=== PATIENT | male | born 1945 | race Caucasian/White ===

== ENCOUNTER 2018-04-13 17:07 | Inpatient (IN) ==
[2018-04-13] MEDS ORDERED: ONDANSETRON INJ 2 MG/ML 2 ML VIAL IV STA (17:26)
--- NOTE | 2018-04-13 17:29 | Emergency Department Note ---
Entered by Aminah Banks acting as a scribe for Maynor Laurent DO History of Present Illness General Chief complaint: Infection, Wound Stated complaint: LEFT LEG AMPUTATION, INFECTION, SWOLLEN Source: patient History of Present Illness Onset (ago): month(s) 2 Location: lower extremity (left) Pain Consistency: + other (episode) Maximum Pain Intensity: 2 Quality: + other (infection) Relieved By: not by medication (Bactrim, OxyContin, Gabapentin) Associated symptoms: no fever/chills (fever) The patient is a 73 year old male who presents to the Emergency Room with complaints of an episode of an infection in his left leg starting 2 months ago. The patient states that on February 07 he had his left leg amputated below his knee due to peripheral edema. He states that he had osteomyelitis. He reports th at wound care has been coming twice a week, but it doesn�t seem to be healing. He states that he is still having pain around the site and it is now getting red. He reports that he has 10 mg of OxyContin to take and Gabapentin, but it offers no relief. He notes that he was on Bactrim for it, but finished it 5 days ago and it is offering no relief. The patient denies fever. Home Medications Home Medications Medication Instructions Recorded Confirmed Type aspirin [Aspirin Low Dose] 81 mg PO QAM 10/25/17 04/13/18 History lisinopril 20 mg PO QAM 10/25/17 04/13/18 History atorvastatin 40 mg PO PM 04/13/18 04/13/18 History cilostazol 50 mg PO BID 04/13/18 04/13/18 History folic acid 1 mg PO DAILY 04/13/18 04/13/18 History gabapentin 600 mg PO UD 04/13/18 04/13/18 History gabapentin 900 mg PO HS 04/13/18 04/13/18 History metoprolol succinate [Toprol XL] 25 mg PO QAM 04/13/18 04/13/18 History oxycodone [OxyContin] 10 mg PO Q12H PRN 04/13/18 04/13/18 History Allergies Allergy/AdvReac Type Severity Reaction Status Date / Time sotalol AdvReac Severe v-fib Unverified 04/13/18 17:42 Past Med/Surg History Medical History History of prolonged Q-T interval on ECG (Chronic) GERD (gastroesophageal reflux disease) (Chronic) History of left below knee am[place] (Chronic) [place] [place] Tobacco use (Chronic) PAD (peripheral artery disease) (Chronic) Alcohol use (Resolved) Coronary artery disease (Chronic) Hypertension (Chronic) Aspiration pneumonia (Resolved) Incarcerated left inguinal hernia Peripheral artery disease Small bowel obstruction Surgical History S/P left inguinal hernia repair (Resolved) History of hand surgery History of neck surgery Family History Other Family history non-contributory Heart disease Social History Preferred Language: Kiswahili Beliefs That Will Affect Care: None marital status: / Current Living Situation: Family Current Living Situation Comment: daughter will be moving out soon Feels Safe at Home: Yes Smoking Status: Current every day smoker Hx Alcohol Use: Yes (Pt previous heavy drinker. Last drink 02/04/18.) Hx Substance Use: No Review of Systems See HPI for pertinent positives & negatives. and A total of 10 systems reviewed and were otherwise negative Physical Exam Vital Signs Vital Signs - 24 hr 04/13/18 17:10 04/13/18 17:26 04/13/18 18:40 Temperature 36.5 C Temperature Source Oral Sepsis Recent Fever Within 48 Hours No Sepsis New/Unexplained Change in Mental Status No Sepsis Action Taken by Nursing No Action Required Pulse Rate 76 Pulse Rate [Finger] 78 78 Pulse Rhythm [Finger] Pulse Strength [Finger] Respiratory Rate 18 20 22 Respiratory Effort / Characteristics Non-Labored Spontaneous Respiratory Depth Normal Respiratory Pattern Regular Blood Pressure 125/66 Blood Pressure [Right Arm] 138/73 141/54 H Blood Pressure Mean 85 Blood Pressure Mean [Right Arm] 94 83 Blood Pressure Position Sitting Blood Pressure Position [Right Arm] Pulse Oximetry 99 100 97 Oxygen Delivery Method Room Air Room Air Room Air 04/13/18 19:14 Temperature Temperature Source Sepsis Recent Fever Within 48 Hours Sepsis New/Unexplained Change in Mental Status Sepsis Action Taken by Nursing Pulse Rate Pulse Rate [Finger] 85 Pulse Rhythm [Finger] Regular Pulse Strength [Finger] Normal Respiratory Rate 18 Respiratory Effort / Characteristics Non-Labored Spontaneous Respiratory Depth Normal Respiratory Pattern Regular Blood Pressure Blood Pressure [Right Arm] 132/65 Blood Pressure Mean Blood Pressure Mean [Right Arm] 87 Blood Pressure Position Blood Pressure Position [Right Arm] Sitting Pulse Oximetry 95 Oxygen Delivery Method Room Air GENERAL: Patient is awake alert in no acute distress patient is resting comfortably and showing no signs of anxiety EYES: The conjunctivae are clear. The pupils are round and reactive. EARS, NOSE, MOUTH AND THROAT: The nose is without any evidence of any deformity. Mucous membranes are moist tongue is midline NECK: The neck is nontender and supple. RESPIRATORY: Normal respiratory effort is noted there is no evidence of wheezing rhonchi or rales CARDIOVASCULAR: Regular rate and rhythm noted there no murmurs rubs or gallops normal S1 normal S2 GASTROINTESTINAL: The abdomen is soft. Bowel sounds are present in all quadrants. Abdomen is nontender MUSCULOSKELETAL/EXTREMITIES: There is no evidence of gross deformity full range of motion is noted in the hips and shoulders SKIN: There is edema to both lower extremities. Left below the knee amputation site is noted. There is erythema noted to the distal stump. There is a nonhealing area over the surgical site. There is granulation tissue noted. No drainage. NEUROLOGIC: Patient is awake alert and oriented x3. Course 1721: Past medical records reviewed. The patient was evaluated in room B3B, and a complete history and physical examination were performed. 1855: I reevaluated the patient and updated him on his test results. I discussed the treatment plan with him. He verbally agrees and understands. 1856: I reviewed the patient's case with ILIANA Winter. She will evaluate the patient for further management. Consultations Consultation #1: I reviewed the patient's case with ILIANA Winter. She will evaluate the patient for further management. Time: 18:56 Administered Medications Vancomycin HCl 1,500 mg/ (Sodium Chloride) 530 mls @ 200 mls/hr IV NOW ONE Stop: 04/13/18 21:29 Last Admin: 04/13/18 19:44 Dose: 200 mls/hr Documented by: [id number] Discontinued Medications Sodium Chloride (Nss) 500 mls @ 999 mls/hr IV .Q31M MARIANNE Stop: 04/13/18 18:00 Last Infusion: 04/13/18 18:09 Dose: 0 mls/hr Documented by: [id number] Admin: 04/13/18 17:43 Dose: 999 mls/hr Documented by: [id number] Ceftriaxone Sodium (Rocephin) 1,000 mg in 50 mls @ 100 mls/hr IV NOW STA Stop: 04/13/18 19:20 Last Infusion: 04/13/18 19:44 Dose: 0 mls/hr Documented by: [id number] Admin: 04/13/18 19:13 Dose: 100 mls/hr Documented by: [id number] Morphine Sulfate (Morphine Sulfate) 4 mg IV Q15M PRN PRN Reason: Pain Stop: 04/27/18 17:25 Last Admin: 04/13/18 18:08 Dose: 4 mg Documented by: [id number] Admin: 04/13/18 17:43 Dose: 4 mg Documented by: [id number] Ondansetron HCl (Zofran) 4 mg IV NOW STA Stop: 04/13/18 17:27 Last Admin: 04/13/18 17:43 Dose: 4 mg Documented by: [id number] Medical Decision Making Differential Diagnosis Etiologies such as cellulitis, abscess, MRSA infection, dermatitis, drug eruption, necrotizing fasciitis, Lyme, tick borne illness as well as others were entertained. Medical Records Attestation: I reviewed the patient's medical records. Home Medications Current Medication List: was personally reviewed by me Laboratory Data Attestation: I reviewed the patient's lab results. Result diagrams: 04/13/18 17:40 04/13/18 17:40 Lab Results 04/13/18 04/13/18 04/13/18 Range/Units 17:40 17:40 17:40 WBC 7.34 (4.8-10.8) K/uL RBC 3.73 L (4.7-6.1) M/uL Hgb 11.6 L (14.0-18.0) g/dL Hct 35.1 L (42-52) % MCV 94.1 (80-100) fL MCH 31.1 (25-34) pg MCHC 33.0 (32-36) g/dL RDW Std Deviation 50.6 H (36.4-46.3) fL RDW Coeff of David 14.9 H (11.5-14.5) % Plt Count 379 (130-400) K/uL MPV 9.0 (7.4-10.4) fL Immature Gran % (Auto) 0.1 % Neut % (Auto) 44.5 % Lymph % (Auto) 41.4 % Charlotte % (Auto) 9.0 % Eos % (Auto) 3.1 % Baso % (Auto) 1.9 % Immature Gran # (Auto) 0.01 (0.00-0.02) K/uL Neut # (Auto) 3.26 (1.4-6.5) K/uL Lymph # (Auto) 3.04 (1.2-3.4) K/uL Charlotte # (Auto) 0.66 H (0.11-0.59) K/uL Eos # (Auto) 0.23 (0-0.5) K/uL Baso # (Auto) 0.14 (0-0.2) K/uL ESR 86 H (0-14) mm/hr PT 10.1 (9.0-12.0) Seconds INR 1.0 (0.9-1.1) APTT 27.1 (21.0-31.0) Seconds PTT Ratio 1.0 Sodium (136-145) mmol/L Potassium (3.5-5.1) mmol/L Chloride (98-107) mmol/L Carbon Dioxide (21-32) mmol/L Anion Gap (3-11) BUN (7-18) mg/dl Creatinine (0.6-1.4) mg/dl Est Cr Clr Drug Dosing ml/min Est GFR ( Amer) Est GFR (Non-Af Amer) BUN/Creatinine Ratio (10-20) Glucose (70-99) mg/dl Calcium (8.5-10.1) mg/dl Magnesium (1.8-2.4) mg/dl Total Bilirubin (0.2-1) mg/dl AST (15-37) U/L ALT (12-78) U/L Alkaline Phosphatase (45-117) U/L C-Reactive Protein (0-0.29) mg/dl Total Protein (6.4-8.2) gm/dl Albumin (3.4-5.0) gm/dl Globulin (2.5-4.0) gm/dl Albumin/Globulin Ratio (0.9-2) Urine Color Urine Appearance (Clear) Urine pH (4.5-7.5) Ur Specific Austin (1.000-1.030) Urine Protein (Negative) Urine Glucose (UA) (Negative) Urine Ketones (Negative) Urine Blood (Negative) Urine Nitrite (Negative) Urine Bilirubin (Negative) Urine Urobilinogen (Negative) Ur Leukocyte Esterase (Negative) 04/13/18 04/13/18 Range/Units 17:40 18:21 WBC (4.8-10.8) K/uL RBC (4.7-6.1) M/uL Hgb (14.0-18.0) g/dL Hct (42-52) % MCV (80-100) fL MCH (25-34) pg MCHC (32-36) g/dL RDW Std Deviation (36.4-46.3) fL RDW Coeff of David (11.5-14.5) % Plt Count (130-400) K/uL MPV (7.4-10.4) fL Immature Gran % (Auto) % Neut % (Auto) % Lymph % (Auto) % Charlotte % (Auto) % Eos % (Auto) % Baso % (Auto) % Immature Gran # (Auto) (0.00-0.02) K/uL Neut # (Auto) (1.4-6.5) K/uL Lymph # (Auto) (1.2-3.4) K/uL Charlotte # (Auto) (0.11-0.59) K/uL Eos # (Auto) (0-0.5) K/uL Baso # (Auto) (0-0.2) K/uL ESR (0-14) mm/hr PT (9.0-12.0) Seconds INR (0.9-1.1) APTT (21.0-31.0) Seconds PTT Ratio Sodium 133 L (136-145) mmol/L Potassium 3.9 (3.5-5.1) mmol/L Chloride 101 (98-107) mmol/L Carbon Dioxide 29 (21-32) mmol/L Anion Gap 3.0 (3-11) BUN 9 (7-18) mg/dl Creatinine 0.78 (0.6-1.4) mg/dl Est Cr Clr Drug Dosing 84.2 ml/min Est GFR ( Amer) 104.5 Est GFR (Non-Af Amer) 90.2 BUN/Creatinine Ratio 10.9 (10-20) Glucose 82 (70-99) mg/dl Calcium 9.2 (8.5-10.1) mg/dl Magnesium 2.1 (1.8-2.4) mg/dl Total Bilirubin 0.5 (0.2-1) mg/dl AST 17 (15-37) U/L ALT 11 L (12-78) U/L Alkaline Phosphatase 85 (45-117) U/L C-Reactive Protein 5.73 H (0-0.29) mg/dl Total Protein 7.5 (6.4-8.2) gm/dl Albumin 3.2 L (3.4-5.0) gm/dl Globulin 4.3 H (2.5-4.0) gm/dl Albumin/Globulin Ratio 0.7 L (0.9-2) Urine Color Yellow Urine Appearance Clear (Clear) Urine pH 7.5 (4.5-7.5) Ur Specific [place] 1.009 (1.000-1.030) Urine Protein Negative (Negative) Urine Glucose (UA) Negative (Negative) Urine Ketones Negative (Negative) Urine Blood Negative (Negative) Urine Nitrite Negative (Negative) Urine Bilirubin Negative (Negative) Urine Urobilinogen Negative (Negative) Ur Leukocyte Esterase Negative (Negative) Imaging Data Radiologist's Impression: Radiology results as stated below per my review and the radiologist's interpretation: CT knee LT wo con CT DOSE: HISTORY: Pain S/P left BKA, swelling and pain TECHNIQUE: Multiaxial CT images of the left knee were performed and reformatted in the sagittal and coronal plane without the use of contrast. A dose lowering technique was utilized adhering to the principles of ALARA. COMPARISON: None. FINDINGS: Findings consistent with a below-knee amputation. There is a healing fracture of the inferior margin of the residual fibula. To reaction is present. There is no lytic or blastic process. There is no CT evidence for osteomyelitis. There is moderate soft tissue edematous change suggesting a generalized subcutaneous cellulitis. There is no evidence for drainable abscess or collection. IMPRESSION: 1. Operative changes consistent with a below-knee amputation. 2. Generalized soft tissue edematous change adjacent to the operative site consistent with generalized cellulitis. 3. No evidence for drainable abscess or collection. 4. No evidence for osteomyelitis. 5. Healing fracture of the inferior margin of the residual fibular fragment. The above report was generated using voice recognition software. It may contain grammatical, syntax or spelling errors. Electronically signed by: Osmar Meadows M.D. 04/13/2018 6:34 PM Blood Pressure Blood Pressure Findings: Normal blood pressure Blood Pressure Disposition: did not require urgent referral MDM Narrative The patient is a 73-year-old male who presented to the emergency department for an evaluation of left leg pain. The patient had an amputation below the knee for peripheral vascular disease as well as infection in his leg. The patient presents today with worsening pain redness and swelling. The patient's history and physical exam appear to be consistent with a cellulitis. CT was obtained but no drainable fluid collection was noted. The patient was treated with pain medication as well as IV antibiotics in the emergency department. He was reevaluated multiple times. I discussed his case with the on-call [facility] hospitalist group. They have agreed to evaluate the patient in the emergency department for further management and disposition. Impression & Plan Postoperative wound cellulitis, Post op infection Discharge Plan Visit Data Chief Complaint: Infection, Wound Stated Complaint: LEFT LEG AMPUTATION, INFECTION, SWOLLEN ED Provider: Maynor Laurent Discharge Problem: Postoperative wound cellulitis, Post op infection Patient Disposition: Being Evaluated by Hospitalist Forms Stand Alone Forms: My [facility] Prescriptions Prescriptions: No Action lisinopril 20 mg Tablet 20 mg PO QAM RF: 0 aspirin [Aspirin Low Dose] 81 mg Tablet,Delayed Release (Dr/Ec) 81 mg PO QAM RF: 0 atorvastatin 40 mg Tablet 40 mg PO PM RF: 0 cilostazol 50 mg Tablet 50 mg PO BID RF: 0 gabapentin 300 mg Capsule 600 mg PO UD RF: 0 gabapentin 300 mg Capsule 900 mg PO HS RF: 0 metoprolol succinate [Toprol XL] 25 mg Tablet Extended Release 24 Hr 25 mg PO QAM RF: 0 oxycodone [OxyContin] 10 mg Tablet,Oral Only,Ext.Rel.12 Hr 10 mg PO Q12H PRN (Reason: Pain) RF: 0 folic acid 1 mg Tablet 1 mg PO DAILY RF: 0 Referrals Referrals: Tio Holcomb M.D. [Primary Care Provider] - Discharge Problem: Post op infection Qualifiers: Encounter type: initial encounter Postoperative infection type: unspecified type Qualified Code(s): T81.40XA - Infection following a procedure, unspecified, initial encounter The scribe's documentation has been prepared under my direction and personally reviewed by me in its entirety. I confirm that the note above accurately reflects all work, treatment, procedures, and medical decision making performed by me.
[2018-04-13] MEDS ORDERED: SODIUM CHLORIDE 0.9% 500 ML IV SCH (17:30)
[2018-04-13] MEDS: MoRPHine SULFATE 4 MG/ML 1 ML CARP\\VIAL IV PRN ×3 (17:43→21:39)
[2018-04-13 17:58] LABS: Basophils # (auto) 0.14 K/uL (0-0.2); Basophils % (auto) 1.9 %; Eosinophils # (auto) 0.23 K/uL (0-0.5); Eosinophils % (auto) 3.1 %; Hematocrit (blood only) 35.1 % (42-52); Hemoglobin 11.6 g/dL (14.0-18.0); Immature Granulocytes # (auto) 0.01 K/uL (0.00-0.02); Immature Granulocytes % (auto) 0.1 %; Lymphocytes # (auto) 3.04 K/uL (1.2-3.4); Lymphocytes % (auto) 41.4 %; Mean Corpuscular Volume 94.1 fL (80-100); Monocytes # (auto) 0.66 K/uL (0.11-0.59); Neutrophils # (auto) 3.26 K/uL (1.4-6.5); Neutrophils % (auto) 44.5 %; Platelet Count 379 K/uL (130-400); RDW Coefficient of Variation 14.9 % (11.5-14.5); RDW Standard Deviation 50.6 fL (36.4-46.3); Red Blood Count 3.73 M/uL (4.7-6.1); White Blood Count 7.34 K/uL (4.8-10.8)
[2018-04-13 18:08] LABS: Partial Thromboplastin Time 27.1 Seconds (21.0-31.0); Prothrombin Time 10.1 Seconds (9.0-12.0)
[2018-04-13 18:21] LABS: Albumin Level 3.2 gm/dl (3.4-5.0); BUN Creatinine Ratio 10.9 (10-20); Calcium 9.2 mg/dl (8.5-10.1); Creatinine Clr Calc Pharmacy 84.2 ml/min; Est GFR (African American) 104.5; Est GFR (Non-African American) 90.2; Magnesium 2.1 mg/dl (1.8-2.4); Potassium 3.9 mmol/L (3.5-5.1)
[2018-04-13 18:23] LABS: Albumin Globulin Ratio 0.7 (0.9-2); Bilirubin,Total 0.5 mg/dl (0.2-1); C Reactive Protein 5.73 mg/dl (0-0.29); Globulin 4.3 gm/dl (2.5-4.0); Total Protein 7.5 gm/dl (6.4-8.2)
[2018-04-13 18:24] LABS: Appearance Urine Clear (Clear); Bilirubin Urine Negative (Negative); Blood Urine Negative (Negative); Color Urine Yellow; Glucose Urine UA Negative (Negative); Ketones Urine Negative (Negative); Leukocyte Esterase Urine Negative (Negative); Nitrite Urine Negative (Negative); Protein Urine Negative (Negative); Specific Gravity Urine 1.009 (1.000-1.030); Urobilinogen Urine Negative (Negative); pH Urine 7.5 (4.5-7.5)
--- NOTE | 2018-04-13 18:35 | CT Scan Report ---
CT knee LT wo con CT DOSE: HISTORY: Pain S/P left BKA, swelling and pain TECHNIQUE: Multiaxial CT images of the left knee were performed and reformatted in the sagittal and c oronal plane without the use of contrast. A dose lowering technique was utilized adhering to the antonella nciples of KASEY. COMPARISON: None. FINDINGS: Findings consistent with a below-knee amputation. There is a healing fracture of the inferi or margin of the residual fibula. To reaction is present. There is no lytic or blastic process. There is no CT evidence for osteomyelitis. There is moderate soft tissue edematous change suggesting a generalized subcutaneous cellulitis. Ther e is no evidence for drainable abscess or collection. IMPRESSION: 1. Operative changes consistent with a below-knee amputation. 2. Generalized soft tissue edematous change adjacent to the operative site consistent with generalize d cellulitis. 3. No evidence for drainable abscess or collection. 4. No evidence for osteomyelitis. 5. Healing fracture of the inferior margin of the residual fibular fragment. The above report was generated using voice recognition software. It may contain grammatical, syntax or spelling errors. Electronically signed by: Osmar Meadows M.D. 04/13/2018 6:34 PM
[2018-04-13] MEDS ORDERED: VANCOMYCIN CONSULT ACTIVE PRN (18:51)
[2018-04-13] MEDS ORDERED: VANCOMYCIN HCL 1,500 MG in SODIUM CHLORIDE 0.9% 500 ML IV ONE (18:51)
[2018-04-13] MEDS ORDERED: cefTRIAXone SODIUM 1,000 MG/50 ML BAG IV STA (18:51)
[2018-04-13] MEDS ORDERED: OXYCODONE/ACETAMINOPHEN 10-325 TAB PO PRN (19:45)
[2018-04-13] MEDS ORDERED: ACETAMINOPHEN 325 MG TAB PO PRN ×2 (19:45→23:46)
--- NOTE | 2018-04-13 19:49 | History & Physical Report ---
Date of Service April 13, 2018 Assessment & Plan (1) Cellulitis of leg, left: Pt presented with c/o increased edema, erythema to left leg at prior incision site of L BKA. Had L BKA on 02/07/[address] Liu. He has had follows ups with vascular surgery since, and has home wound care coming to house twice weekly. Bactrim x 10 days by PCP on 03/29/18 without relief. Denies fever/chills, N/V In ER pt afebrile, vitals stable. No leukocytosis CT Knee: 1. Operative changes consistent with a below-knee amputation. 2. Generalized soft tissue edematous change adjacent to the operative site consistent with generalized cellulitis. 3. No evidence for drainable abscess or collection. 4. No evidence for osteomyelitis. 5. Healing fracture of the inferior margin of the residual fibular fragment. -In ER was given Rocephin, Vancomycin, Morphine, Zofran, 500ml NSS -Plan: see Dr Erickson's addendum for plan (2) PAD (peripheral artery disease): Hx PAD L BKA secondary to ischemia On pletal, aspirin, atorvastatin (3) Hypertension: -On lisinopril, metoprolol at home (4) Coronary artery disease: Denies CP/SOB -On ASA, atorvastatin, metoprolol at home (5) History of prolonged Q-T interval on ECG: (6) Tobacco use: Pt reports prior attempts to quit, but "justs like to smoke" -smoking cessation encouraged (7) Alcohol use: Previous ETOH use. Last drink 02/04/[address] Holcomb for routine care Pt was seen with Dr Erickson. See addendum for further plan and assessment. History of Present Illness Chief Complaint: Leg edema and swelling Primary Care Provider: Tio Holcomb Pt is 73 y/o M with PMH HTN, GERD, CAD, PAD s/p L BKA in 01/2018, tobacco use, prior alcohol use, h/o prolonged QTc presented to ER with c/o increased edema, erythema to left leg at prior incision site of L BKA. Pt with hx ER visit at [facility] on 02/05/18 for L foot infection and found to have occluded L distal superficial femoral artery, L popliteal artery, L proximal posterior artery, L peroneal arther and L anterior tibial artery and was transferred to [facility] [place]. Pt had L BKA on 02/07/[address] Liu. He has had follows ups with vascular surgery since, was to have follow up today, however pt rescheduled. Pt states has been having issues with wound healing since surgery and has wound care coming to house twice weekly. Pt reports noticed increased edema and erythema over the past month. Pt was started on Bactrim x 10 days by PCP on 03/29/18 and states finished course without any improvement and feels symptoms are worse with increased edema, erythema. Pt states has noticed some pus like drainage from area. He denies any red streaking. Reports initially after surgery had fantom pain, however that has resolved. He reports still feels like foot is present and has fallen a couple times at night getting out of bed as he forgot his foot was gone. Denies fever/chills, diaphoresis, N/V/D/C, VEGA, dizziness, syncope, vision changes, neck pain, CP, SOB, orthopnea, palpitations, cough, sore throat, choking, otalgia, rhinorrhea, abdominal pain, other rashes, urinary symptoms. Allergies Allergy/AdvReac Type Severity Reaction Status Date / Time sotalol AdvReac Severe v-fib Unverified 04/13/18 17:42 Home Medications Home Medications Medication Instructions Recorded Confirmed Type aspirin [Aspirin Low Dose] 81 mg PO QAM 10/25/17 04/13/18 History lisinopril 20 mg PO QAM 10/25/17 04/13/18 History atorvastatin 40 mg PO PM 04/13/18 04/13/18 History cilostazol 50 mg PO BID 04/13/18 04/13/18 History folic acid 1 mg PO DAILY 04/13/18 04/13/18 History gabapentin 600 mg PO UD 04/13/18 04/13/18 History gabapentin 900 mg PO HS 04/13/18 04/13/18 History metoprolol succinate [Toprol XL] 25 mg PO QAM 04/13/18 04/13/18 History oxycodone [OxyContin] 10 mg PO Q12H PRN 04/13/18 04/13/18 History Past Med/Surg History Medical History History of prolonged Q-T interval on ECG (Chronic) GERD (gastroesophageal reflux disease) (Chronic) History of left below knee amputation (Chronic) 02/07/18 -[facility] [place] Dr Liu Tobacco use (Chronic) PAD (peripheral artery disease) (Chronic) Alcohol use (Resolved) Coronary artery disease (Chronic) Hypertension (Chronic) Aspiration pneumonia (Resolved) Incarcerated left inguinal hernia Peripheral artery disease Small bowel obstruction Surgical History S/P left inguinal hernia repair (Resolved) History of hand surgery History of neck surgery Family History Other Family history non-contributory Heart disease Social History Preferred Language: Danish Communication Ability: Effective Concrete Saw Operator Required: No Beliefs That Will Affect Care: None marital status: / Current Living Situation: Family Current Living Situation Comment: daughter will be moving out soon Feels Safe at Home: Yes Smoking Status: Current every day smoker Hx Alcohol Use: Yes Hx Substance Use: No Review of Systems All systems reviewed & are unremarkable except as noted in HPI & below Physical Exam Vital Signs (Past 24 Hours): Last Vital Signs Temp 36.5 C 04/13/18 17:10 Pulse 85 04/13/18 19:14 Resp 18 04/13/18 19:14 BP 132/65 04/13/18 19:14 Pulse Ox 95 04/13/18 19:14 Physical Exam: General: no distress, WDWN Head: normocephalic, atraumatic Eyes:conjunctiva non-injected, anicteric ENT: normal inspection external ears, nose, mucous membranes moist Neck: supple, trachea midline Lungs: clear, no respiratory distress CV: RRR, no murmur Abd: normal BS, soft, non-tender Ext:LLE: +BKA with prior incision with scabbing, lateral aspect with gaping, incision site with some surrounding erythema and tenderness to palpation. No discharge from wound noted at this time. Diffuse L knee edema, upper leg non- tender to palpation. RLE: no cyanosis/erythema, no calf tenderness Neuro: A&O x 3, no focal deficits noted, normal affect Skin: warm, dry Results & Data Laboratory Results Short CBC 04/13/18 Range/Units 17:40 WBC 7.34 (4.8-10.8) K/uL Hgb 11.6 L (14.0-18.0) g/dL Hct 35.1 L (42-52) % Plt Count 379 (130-400) K/uL BMP 04/13/18 17:40 Sodium 133 L Potassium 3.9 Chloride 101 Carbon Dioxide 29 BUN 9 Creatinine 0.78 Glucose 82 Calcium 9.2 Liver Function 04/13/18 Range/Units 17:40 Total Bilirubin 0.5 (0.2-1) mg/dl AST 17 (15-37) U/L ALT 11 L (12-78) U/L Alkaline Phosphatase 85 (45-117) U/L Albumin 3.2 L (3.4-5.0) gm/dl Urine 04/13/18 Range/Units 18:21 Urine Color Yellow Urine Appearance Clear (Clear) Urine pH 7.5 (4.5-7.5) Ur Specific [place] 1.009 (1.000-1.030) Urine Protein Negative (Negative) Urine Glucose (UA) Negative (Negative) Diagnostic Findings CT KNEE: IMPRESSION: 1. Operative changes consistent with a below-knee amputation. 2. Generalized soft tissue edematous change adjacent to the operative site consistent with generalized cellulitis. 3. No evidence for drainable abscess or collection. 4. No evidence for osteomyelitis. 5. Healing fracture of the inferior margin of the residual fibular fragment. Supervising Physician Co-Signing Physician Notes IM ATTENDING : Patient seen and examined. History obtained from patient and records. Preceding documentation by Ms. Annie Gonsalves PA-C reviewed. FINAL ASSESSMENT AND PLAN as follows : Cellulitis secondary to infected postop wound, LLE hx L BKA for left lower limb ischemia (01/2018, [facility] [place]), hx PAD Failed outpatient treatment. No sepsis ro LE DVT Rule out osteomyelitis Hypertension, stable CAD status post stenting Postop anemia, hemoglobin at baseline Past alcohol abuse as per records (Patient somewhat tremulous; claims last drink was 3 months ago) Ongoing tobacco abuse F Cultures, Doxycycline Local measures for LLE cellulitis Wound care provider consult in a.m. LE venous Dopplers rule out DVT MRI left BKA amputation stump rule out osteomyelitis Further management pending workup results. DT precautions as needed Nicotine patch as needed DVT prophylaxis with Lovenox subcu Full code
[2018-04-13] MEDS ORDERED: THIAMINE HCL 100 MG in SYRINGE 9 ML IV STA (20:58)
--- NOTE | 2018-04-13 22:38 | Ultrasound Report ---
US venous doppler LE BI HISTORY: Pain. Edema. donya leg swelling COMPARISON STUDY: None. FINDINGS: Prior left below knee amputation. Thrombus is identified within the left popliteal vein. Al l remaining components of the study are unremarkable. IMPRESSION: Focal acute deep venous thrombosis left popliteal vein. Otherwise normal exam The above report was generated using voice recognition software. It may contain grammatical, syntax or spelling errors. Electronically signed by: Osmar Meadows M.D. 04/13/2018 10:35 PM
[2018-04-13] MEDS ORDERED: NSS + 20MEQ KCL 20 MEQ/1,000 ML BAG IV ONE (23:46)
[2018-04-13] MEDS ORDERED: KETOROLAC TROMETHAMINE 15 MG/ML VIAL IV ONE (23:46)
[2018-04-14] MEDS ORDERED: Heparin IV Standard *NO* Bolus IV SCH (00:05)
[2018-04-14] MEDS: ATORVASTATIN 40 MG TAB PO SCH ×2 (00:41→20:39)
[2018-04-14] MEDS: GABAPENTIN 300 MG CAP PO SCH ×2 (00:41→20:39)
[2018-04-14] MEDS: CILOSTAZOL 100 MG TAB PO SCH ×3 (00:44→20:40)
[2018-04-14] MEDS: HEPARIN STANDARD DEXTROSE 25,000 UNITS/500 ML IV SCH ×2 (02:22→22:03)
[2018-04-14] MEDS: OXYCODONE/ACETAMINOPHEN 5mg/325mg TAB PO PRN ×4 (03:27→22:34)
[2018-04-14] MEDS ORDERED: CONSULT PHARMACY STA (07:40)
[2018-04-14] MEDS: FOLIC ACID 1 MG TAB PO SCH (08:04)
[2018-04-14] MEDS: METOPROLOL SUCC 25MG EXT REL TAB PO SCH (08:07)
[2018-04-14] MEDS: DOXYCYCLINE HYCLATE 100 MG CAP PO SCH ×2 (08:07→20:40)
[2018-04-14] MEDS: LISINOPRIL 20 MG TAB PO SCH (08:08)
[2018-04-14] MEDS: ASPIRIN 81 MG ECTAB PO SCH (08:08)
[2018-04-14] MEDS ORDERED: AMPICILLIN/SULBACTAM CONSULT ACTIVE PRN (08:20)
[2018-04-14 08:29] LABS: Basophils # (auto) 0.09 K/uL (0-0.2); Basophils % (auto) 1.4 %; Eosinophils # (auto) 0.33 K/uL (0-0.5); Eosinophils % (auto) 5.1 %; Hematocrit (blood only) 31.9 % (42-52); Hemoglobin 10.3 g/dL (14.0-18.0); Immature Granulocytes # (auto) 0.01 K/uL (0.00-0.02); Immature Granulocytes % (auto) 0.2 %; Lymphocytes # (auto) 2.18 K/uL (1.2-3.4); Lymphocytes % (auto) 33.9 %; Mean Corpuscular Hgb Conc 32.3 g/dL (32-36); Mean Corpuscular Volume 94.9 fL (80-100); Monocytes # (auto) 0.62 K/uL (0.11-0.59); Monocytes % (auto) 9.6 %; Neutrophils # (auto) 3.21 K/uL (1.4-6.5); Neutrophils % (auto) 49.8 %; Platelet Count 317 K/uL (130-400); RDW Coefficient of Variation 14.9 % (11.5-14.5); RDW Standard Deviation 51.9 fL (36.4-46.3); Red Blood Count 3.36 M/uL (4.7-6.1); White Blood Count 6.44 K/uL (4.8-10.8)
[2018-04-14 08:49] LABS: Partial Thromboplastin Ratio 1.9; Partial Thromboplastin Time 50.7 Seconds (21.0-31.0)
[2018-04-14 08:56] LABS: Calcium 8.5 mg/dl (8.5-10.1); Est GFR (African American) 102.4; Est GFR (Non-African American) 88.3; Potassium 4.2 mmol/L (3.5-5.1)
[2018-04-14 09:12] LABS: BUN Creatinine Ratio 14.3 (10-20)
[2018-04-14] MEDS: AMPICILLIN/SULBACTAM SOD 3,000 MG in 0.9 % SODIUM CHLORIDE 100 ML IV SCH ×3 (09:29→20:38)
[2018-04-14] MEDS: MoRPHine SULFATE 4 MG/ML 1 ML CARP\\VIAL IV PRN (13:38)
[2018-04-14] MEDS: LORazepam 0.5 MG/1 ML VIAL IV PRN (13:39)
--- NOTE | 2018-04-14 15:57 | Hospitalist Progress Note ---
Date of Service April 14, 2018 Assessment & Plan (1) Cellulitis of leg, left: Patient is a 73 yr male who presents with increased edema, erythema to left leg at prior incision site of L BKA. Left Leg Cellulitis: R/O Osteomyelitis H/O left BKA on 02/07/[address] Liu. Failed outpatient Bactrim x 10 days by PCP --CT Knee:Operative changes consistent with a below-knee amputation. Generalized soft tissue edematous change adjacent to the operative site consistent with generalized cellulitis. No evidence for drainable abscess or collection. No evidence for osteomyelitis. Healing fracture of the inferior margin of the residual fibular fragment. --Received IV fluids --Continue IV Abx --Cultures:pending --Continue Wound care --May need debridement --MRI pending (2) PAD (peripheral artery disease): Hx PAD L BKA secondary to ischemia Continue Pletal, aspirin, atorvastatin (3) Hypertension: Stable Continue lisinopril, metoprolol (4) Coronary artery disease: Denies angina symptoms Continue ASA, atorvastatin, metoprolol (5) History of prolonged Q-T interval on ECG: (6) Tobacco use: Patient not interested to quit smoking Counselled to quit smoking (7) Alcohol use: Previous ETOH use. 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 Acute DVT: Continue IV heparin Will plan to start on coumadin as able DVT Px: on IV Heparin Disposition: Case management for discharge planning Subjective Patient is seen and examined at bedside Left leg swelling is better Complains of leg pain Denies chest pain, SOB, dizziness No other complaints Physical Exam Vital Signs (Past 24 Hours): Last Vital Signs Temp 36.7 C 04/14/18 15:31 Pulse 71 04/14/18 15:31 Resp 18 04/14/18 15:31 BP 119/69 04/14/18 15:31 Pulse Ox 96 04/14/18 15:31 Physical Exam: Physical Exam: Vitals signs as noted above General Appearance:Moderately built and nourished, no apparent distress Head: normocephalic, Atraumatic Eyes: normal inspection, EOMI Neck: supple, Trachea midline Respiratory/Chest: Decreased breath sounds, CTA Cardiovascular: S1, S2, No murmur Abdomen/GI:Soft, Non tender, Bowel sounds present Extremities/Musculoskelatal:normal inspection, + Left BKA stump wound in dressing, +edema, tender Neurologic/Psych:AAOX3, grossly no focal neurological deficits Skin: normal color, warm Results & Data Laboratory Results Short CBC 04/13/18 04/14/18 Range/Units 17:40 08:15 WBC 7.34 6.44 (4.8-10.8) K/uL Hgb 11.6 L 10.3 L (14.0-18.0) g/dL Hct 35.1 L 31.9 L (42-52) % Plt Count 379 317 (130-400) K/uL BMP 04/13/18 04/14/18 17:40 08:15 Sodium 133 L 138 Potassium 3.9 4.2 Chloride 101 106 Carbon Dioxide 29 29 BUN 9 12 Creatinine 0.78 0.82 Glucose 82 81 Calcium 9.2 8.5 Liver Function 04/13/18 Range/Units 17:40 Total Bilirubin 0.5 (0.2-1) mg/dl AST 17 (15-37) U/L ALT 11 L (12-78) U/L Alkaline Phosphatase 85 (45-117) U/L Albumin 3.2 L (3.4-5.0) gm/dl Urine 04/13/18 Range/Units 18:21 Urine Color Yellow Urine Appearance Clear (Clear) Urine pH 7.5 (4.5-7.5) Ur Specific [place] 1.009 (1.000-1.030) Urine Protein Negative (Negative) Urine Glucose (UA) Negative (Negative)
--- NOTE | 2018-04-14 23:09 | Magnetic Resonance Report ---
MR lower leg LT wo con HISTORY: 73 years-old Male LLE amp stump swelling ro osteomyelitis chronic pain and swelling about t he right lower leg with possible acute osteomyelitis COMPARISON: CT of the left lower extremity 04/13/2018 TECHNIQUE: Multiplanar multisequence MRI of the left lower leg was obtained without the use of IV con trast. FINDINGS: The study is markedly motion degraded rendering the study nearly nondiagnostic. Postoperative changes from prior below the knee amputation. There is a cutaneous defect measuring approximately 2.2 cm not ed along the anterior surface of the distal amputation stump. Diffuse subcutaneous and intramuscular edema is noted without drainable fluid collection. No definite bony erosive changes to suggest acute osteomyelitis. No drainable fluid collections identified. Study is not tailored to assess the extrins ic structures of the knee. 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 No large j oint effusion identified. IMPRESSION: 1. Markedly motion degraded exam. The study is considered nearly nondiagnostic. 2. Postoperative changes compatible with prior below the knee amputation. Cutaneous defect along the anterior distal soft tissues is noted along with diffuse subcutaneous and deep tissue edema suggestiv e of cellulitis, venous stasis or lymphedema. 3. No drainable fluid collection. 4. No definite evidence of acute osteomyelitis. Consider repeat exam if of further clinical concern. The above report was generated using voice recognition software. It may contain grammatical, syntax o r spelling errors. Electronically signed by: Amilcar Wright M.D. 04/14/2018 11:07 PM
[2018-04-15] MEDS: AMPICILLIN/SULBACTAM SOD 3,000 MG in 0.9 % SODIUM CHLORIDE 100 ML IV SCH ×4 (02:50→20:34)
[2018-04-15] MEDS: OXYCODONE/ACETAMINOPHEN 5mg/325mg TAB PO PRN ×2 (03:58→11:15)
[2018-04-15] MEDS: MoRPHine SULFATE 4 MG/ML 1 ML CARP\\VIAL IV PRN ×3 (06:07→20:37)
[2018-04-15 06:13] LABS: Hematocrit (blood only) 31.8 % (42-52); Hemoglobin 10.7 g/dL (14.0-18.0); Mean Corpuscular Hgb Conc 33.6 g/dL (32-36); Mean Corpuscular Volume 94.9 fL (80-100); Mean Platelet Volume 8.9 fL (7.4-10.4); Platelet Count 319 K/uL (130-400); RDW Standard Deviation 51.5 fL (36.4-46.3); Red Blood Count 3.35 M/uL (4.7-6.1); White Blood Count 7.29 K/uL (4.8-10.8)
[2018-04-15 06:46] LABS: Partial Thromboplastin Ratio 2.3
[2018-04-15 06:53] LABS: BUN Creatinine Ratio 5.1 (10-20); Calcium 8.6 mg/dl (8.5-10.1); Creatinine Clr Calc Pharmacy 75.4 ml/min; Est GFR (African American) 99.9; Est GFR (Non-African American) 86.2; Potassium 3.8 mmol/L (3.5-5.1)
[2018-04-15] MEDS: METOPROLOL SUCC 25MG EXT REL TAB PO SCH (08:17)
[2018-04-15] MEDS: FOLIC ACID 1 MG TAB PO SCH (08:18)
[2018-04-15] MEDS: ASPIRIN 81 MG ECTAB PO SCH (08:18)
[2018-04-15] MEDS: CILOSTAZOL 100 MG TAB PO SCH ×2 (08:18→20:33)
[2018-04-15] MEDS: DOXYCYCLINE HYCLATE 100 MG CAP PO SCH ×2 (08:18→20:33)
[2018-04-15] MEDS: LISINOPRIL 20 MG TAB PO SCH (08:18)
[2018-04-15] MEDS ORDERED: MoRPHine SULFATE 4 MG/ML 1 ML CARP\\VIAL IV STA (15:03)
--- NOTE | 2018-04-15 15:17 | Wound Consultation ---
Date of Consultation April 15, 2018 Assessment & Plan (1) Postoperative wound cellulitis: Wound needed debridement. After obtaining permission topical Xylocaine was applied. Using a #5 curette, fibrin, slough and necrotic tissue were debrided. Minimal bleeding was controlled with pressure and silver nitrate. Patient tolerated procedure well with no complications. This represents an excisional debridement of 67.65 cm�. Wound will be dressed with choice cleanse wound VAC. Will be irrigated with saline. Agree with empiric antibiotics. Will reevaluate when the final culture is available. Patient is stable to start Coumadin for DVT from a wound standpoint. Patient will need to follow with his surgeon on [facility] at some point. I have no problem following the patient and the wound clinic. Thank you for the consult please not hesitate to call with any further questions. Present on Admission?: Yes (2) Cellulitis of leg, left: History of Present Illness Attending Physician: Ross Chong MD This is a 73-year-old male who is admitted with cellulitis status post BKA on 02/07/[address] Liu. MRI is negative for osteomyelitis but is considered nondiagnostic secondary to movement. Patient also has a new DVT in his left popliteal vein. I have been consulted in light of the surgical wound. Allergies Allergy/AdvReac Type Severity Reaction Status Date / Time sotalol AdvReac Severe v-fib Unverified 04/13/18 17:42 Home Medications Home Medications Medication Instructions Recorded Confirmed Type aspirin [Aspirin Low Dose] 81 mg PO QAM 10/25/17 04/13/18 History lisinopril 20 mg PO QAM 10/25/17 04/13/18 History atorvastatin 40 mg PO PM 04/13/18 04/13/18 History cilostazol 50 mg PO BID 04/13/18 04/13/18 History folic acid 1 mg PO DAILY 04/13/18 04/13/18 History gabapentin 600 mg PO UD 04/13/18 04/13/18 History gabapentin 900 mg PO HS 04/13/18 04/13/18 History metoprolol succinate [Toprol XL] 25 mg PO QAM 04/13/18 04/13/18 History oxycodone [OxyContin] 10 mg PO Q12H PRN 04/13/18 04/13/18 History Patient History Medical History History of prolonged Q-T interval on ECG (Chronic) GERD (gastroesophageal reflux disease) (Chronic) History of left below knee amputation (Chronic) 02/07/18 -[facility] [place] - Dr Liu Tobacco use (Chronic) PAD (peripheral artery disease) (Chronic) Alcohol use (Resolved) Coronary artery disease (Chronic) Hypertension (Chronic) Aspiration pneumonia (Resolved) Incarcerated left inguinal hernia Peripheral artery disease Small bowel obstruction Surgical History S/P left inguinal hernia repair (Resolved) History of hand surgery History of neck surgery Family History Other Family history non-contributory Heart disease Social History Communication Ability: Effective Beliefs That Will Affect Care: None marital status: / Current Living Situation: Family Current Living Situation Comment: daughter will be moving out soon Feels Safe at Home: Yes Smoking Status: Current every day smoker Hx Alcohol Use: Yes Hx Substance Use: No Physical Exam Vital Signs (Past 24 Hours): Last Vital Signs Temp 36.9 C 04/15/18 07:24 Pulse 77 04/15/18 07:24 Resp 16 04/15/18 07:24 BP 133/70 04/15/18 07:24 Pulse Ox 92 04/15/18 07:24 Constitutional: WD/WN, vitals as above Respiratory: normal respiratory effort, lungs clear to auscultation Cardiovascular: RRR, no murmur, no edema Skin: Wound measuring is recorded in nursing documentation. Wound bed is covered in fibrin, slough and necrotic tissue. Periwound is intact lower erythematous. Neurologic: awake; not confused Psychiatric: A+Ox3, euthymic affect
[2018-04-15] MEDS ORDERED: WARFARIN SOD 7.5 MG TAB PO ONE (16:00)
[2018-04-15] MEDS: HEPARIN STANDARD DEXTROSE 25,000 UNITS/500 ML IV SCH (17:26)
--- NOTE | 2018-04-15 18:51 | Hospitalist Progress Note ---
Date of Service April 15, 2018 Assessment & Plan (1) Cellulitis of leg, left: Patient is a 73 yr male who presents with increased edema, erythema to left leg at prior incision site of L BKA. Left Leg Cellulitis: Secondary to infected postoperative wound, a complication of care R/O Osteomyelitis H/O left BKA on 02/07/[address] Liu. Failed outpatient Bactrim x 10 days by PCP --CT Knee:Operative changes consistent with a below-knee amputation. Generalized soft tissue edematous change adjacent to the operative site consistent with generalized cellulitis. No evidence for drainable abscess or collection. No evidence for osteomyelitis. Healing fracture of the inferior margin of the r esidual fibular fragment. --MRI:Postoperative changes compatible with prior below the knee amputation. Cutaneous defect along the anterior distal soft tissues is noted along with diffuse subcutaneous and deep tissue edema suggestive of cellulitis, venous stasis or lymphedema. No drainable fluid collection. No definite evidence of acute osteomyelitis. Consider repeat exam if of further clinical concern. S/P debridement on 04/15/18 --Received IV fluids --Continue IV Abx --Wound Culture:Corynebacterium --Blood Culture: No growth to date --Continue wound Vac & Care --Appreciate Wound Care physician help --Needs FU with his Surgeon in [facility] upon discharge (2) PAD (peripheral artery disease): Hx PAD L BKA secondary to ischemia Continue Pletal, aspirin, atorvastatin (3) Hypertension: Stable Continue lisinopril, metoprolol (4) Coronary artery disease: Denies angina symptoms Continue ASA, atorvastatin, metoprolol (5) History of prolonged Q-T interval on ECG: (6) Tobacco use: Patient not interested to quit smoking Counselled to quit smoking (7) Alcohol use: Previous ETOH use. 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
[2018-04-15] MEDS: GABAPENTIN 300 MG CAP PO SCH (20:34)
[2018-04-15] MEDS: ATORVASTATIN 40 MG TAB PO SCH (20:34)
[2018-04-16] MEDS: LORazepam 0.5 MG/1 ML VIAL IV PRN (02:23)
[2018-04-16] MEDS: AMPICILLIN/SULBACTAM SOD 3,000 MG in 0.9 % SODIUM CHLORIDE 100 ML IV SCH ×4 (02:24→19:57)
[2018-04-16] MEDS ORDERED: BACLOFEN 10 MG TAB PO PRN (04:22)
[2018-04-16 06:17] LABS: Basophils # (auto) 0.09 K/uL (0-0.2); Basophils % (auto) 1.2 %; Eosinophils # (auto) 0.47 K/uL (0-0.5); Eosinophils % (auto) 6.1 %; Hematocrit (blood only) 29.8 % (42-52); Hemoglobin 9.8 g/dL (14.0-18.0); Immature Granulocytes # (auto) 0.01 K/uL (0.00-0.02); Immature Granulocytes % (auto) 0.1 %; Lymphocytes # (auto) 2.48 K/uL (1.2-3.4); Lymphocytes % (auto) 32.1 %; Mean Corpuscular Hgb Conc 32.9 g/dL (32-36); Mean Corpuscular Volume 93.4 fL (80-100); Monocytes # (auto) 0.79 K/uL (0.11-0.59); Monocytes % (auto) 10.2 %; Neutrophils # (auto) 3.88 K/uL (1.4-6.5); Neutrophils % (auto) 50.3 %; Platelet Count 314 K/uL (130-400); RDW Coefficient of Variation 14.8 % (11.5-14.5); RDW Standard Deviation 49.8 fL (36.4-46.3); Red Blood Count 3.19 M/uL (4.7-6.1); White Blood Count 7.72 K/uL (4.8-10.8)
[2018-04-16 07:02] LABS: INR 1.1 (0.9-1.1); Partial Thromboplastin Ratio 1.8; Partial Thromboplastin Time 48.6 Seconds (21.0-31.0); Prothrombin Time 10.9 Seconds (9.0-12.0)
[2018-04-16] MEDS: MoRPHine SULFATE 4 MG/ML 1 ML CARP\\VIAL IV PRN ×4 (07:32→21:26)
[2018-04-16] MEDS: METOPROLOL SUCC 25MG EXT REL TAB PO SCH (07:36)
[2018-04-16] MEDS: CILOSTAZOL 100 MG TAB PO SCH ×2 (07:37→20:01)
[2018-04-16] MEDS: ASPIRIN 81 MG ECTAB PO SCH (07:37)
[2018-04-16] MEDS: DOXYCYCLINE HYCLATE 100 MG CAP PO SCH (07:37)
[2018-04-16] MEDS: FOLIC ACID 1 MG TAB PO SCH (07:37)
[2018-04-16] MEDS: LISINOPRIL 20 MG TAB PO SCH (07:38)
[2018-04-16] MEDS: OXYCODONE/ACETAMINOPHEN 5mg/325mg TAB PO PRN ×2 (09:17→23:12)
[2018-04-16] MEDS: HEPARIN STANDARD DEXTROSE 25,000 UNITS/500 ML IV SCH (13:42)
[2018-04-16] MEDS ORDERED: WARFARIN SOD 5 MG TAB PO SCH (16:00)
--- NOTE | 2018-04-16 17:23 | Hospitalist Progress Note ---
Date of Service April 16, 2018 Assessment & Plan (1) Cellulitis of leg, left: Patient is a 73 yr male who presents with increased edema, erythema to left leg at prior incision site of L BKA. Left Leg Cellulitis: Secondary to infected postoperative wound, a complication of care R/O Osteomyelitis H/O left BKA on 02/07/[address] Liu. Failed outpatient Bactrim x 10 days by PCP --CT Knee:Operative changes consistent with a below-knee amputation. Generalized soft tissue edematous change adjacent to the operative site consistent with generalized cellulitis. No evidence for drainable abscess or collection. No evidence for osteomyelitis. Healing fracture of the inferior margin of the r esidual fibular fragment. --MRI:Postoperative changes compatible with prior below the knee amputation. Cutaneous defect along the anterior distal soft tissues is noted along with diffuse subcutaneous and deep tissue edema suggestive of cellulitis, venous stasis or lymphedema. No drainable fluid collection. No definite evidence of acute osteomyelitis. Consider repeat exam if of further clinical concern. S/P debridement on 04/15/18 --Received IV fluids --Continue IV Abx --Wound Culture:Corynebacterium --Blood Culture: No growth to date --Continue wound Vac & Care --Appreciate Wound Care physician help --Needs FU with his Surgeon in [facility] upon discharge --Requiring IV pain meds to control pain (2) PAD (peripheral artery disease): Hx PAD L BKA secondary to ischemia Continue Pletal, aspirin, atorvastatin (3) Hypertension: Stable Continue lisinopril, metoprolol (4) Coronary artery disease: Denies angina symptoms Continue ASA, atorvastatin, metoprolol (5) History of prolonged Q-T interval on ECG: (6) Tobacco use: Patient not interested to quit smoking Counselled to quit smoking (7) Alcohol use: Previous ETOH use. 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 Acute DVT: Continue IV heparin Continue coumadin monitor PT/INR:1.1 today DVT Px: on IV Heparin and coumadin Disposition: Case management for discharge planning Subjective Patient is seen and examined at bedside Complains of Left leg pain Wound Vac in place leg swelling, redness improved No bleeding issues Denies chest pain, SOB, dizziness Physical Exam Vital Signs (Past 24 Hours): Last Vital Signs Temp 36.7 C 04/16/18 15:25 Pulse 79 04/16/18 15:25 Resp 20 04/16/18 15:25 BP 89/50 L 04/16/18 15:25 Pulse Ox 95 04/16/18 15:25 Physical Exam: Physical Exam: Vitals signs as noted above General Appearance:Moderately built and nourished, no apparent distress Head: normocephalic, Atraumatic Eyes: normal inspection, EOMI Neck: supple, Trachea midline Respiratory/Chest: Decreased breath sounds, CTA Cardiovascular: S1, S2, No murmur Abdomen/GI:Soft, Non tender, Bowel sounds present Extremities/Musculoskelatal:normal inspection, + Left BKA stump, +Wound vac, swelling Neurologic/Psych:AAOX3, grossly no focal neurological deficits Skin: normal color, warm Results & Data Laboratory Results Short CBC 04/16/18 Range/Units 05:56 WBC 7.72 (4.8-10.8) K/uL Hgb 9.8 L (14.0-18.0) g/dL Hct 29.8 L (42-52) % Plt Count 314 (130-400) K/uL
[2018-04-16] MEDS: ATORVASTATIN 40 MG TAB PO SCH (20:01)
[2018-04-16] MEDS: GABAPENTIN 300 MG CAP PO SCH (20:02)
[2018-04-17] MEDS: MoRPHine SULFATE 4 MG/ML 1 ML CARP\\VIAL IV PRN ×5 (01:19→22:36)
[2018-04-17] MEDS: AMPICILLIN/SULBACTAM SOD 3,000 MG in 0.9 % SODIUM CHLORIDE 100 ML IV SCH ×2 (01:20→07:37)
[2018-04-17 06:48] LABS: Hematocrit (blood only) 31.4 % (42-52)
[2018-04-17 07:14] LABS: INR 1.1 (0.9-1.1); Partial Thromboplastin Ratio 1.8; Prothrombin Time 11.6 Seconds (9.0-12.0)
[2018-04-17 07:23] LABS: BUN Creatinine Ratio 9.1 (10-20); Calcium 8.3 mg/dl (8.5-10.1); Creatinine Clr Calc Pharmacy 91.2 ml/min; Est GFR (Non-African American) 93.2; Potassium 3.8 mmol/L (3.5-5.1)
[2018-04-17] MEDS: LISINOPRIL 20 MG TAB PO SCH (07:39)
[2018-04-17] MEDS: CILOSTAZOL 100 MG TAB PO SCH ×2 (07:39→20:29)
[2018-04-17] MEDS: METOPROLOL SUCC 25MG EXT REL TAB PO SCH (07:40)
[2018-04-17] MEDS: FOLIC ACID 1 MG TAB PO SCH (07:41)
[2018-04-17] MEDS: ASPIRIN 81 MG ECTAB PO SCH (07:41)
[2018-04-17 07:46] LABS: Partial Thromboplastin Time 47.6 Seconds (21.0-31.0)
[2018-04-17] MEDS: HEPARIN STANDARD DEXTROSE 25,000 UNITS/500 ML IV SCH ×2 (07:50→11:07)
[2018-04-17] MEDS: PSYLLIUM 58.6% POWDER PACKET PO SCH (13:10)
--- NOTE | 2018-04-17 15:19 | Hospitalist Progress Note ---
Date of Service April 17, 2018 Assessment & Plan (1) Cellulitis of leg, left: Patient is a 73 yr male who presents with increased edema, erythema to left leg at prior incision site of L BKA. Left Leg Cellulitis: At the left BKA site Secondary to infected postoperative wound, a complication of care. No osteomyelitis -as below H/O left BKA on 02/07/[address] Liu. Failed outpatient Bactrim x 10 days by PCP --CT Knee:Operative changes consistent with a below-knee amputation. Generalized soft tissue edematous change adjacent to the operative site consistent with generalized cellulitis. No evidence for drainable abscess or collection. No evidence for osteomyelitis. Healing fracture of the inferior margin of the residual fibular fragment. --MRI:Postoperative changes compatible with prior below the knee amputation. Cutaneous defect along the anterior distal soft tissues is noted along with diffuse subcutaneous and deep tissue edema suggestive of cellulitis, venous stasis or lymphedema. No drainable fluid collection. No definite evidence of acute osteomyelitis. Consider repeat exam if of further clinical concern. S/P debridement on 04/15/18 --Received IV fluids --Continue IV Unasyn-changed to Augmentin as of 04/17 --Wound Culture:Corynebacterium --Blood Culture: No growth to date --Continue wound Vac & Care --Appreciate Wound Care physician input and recommendation --Needs FU with his Surgeon in [facility] upon discharge --Requiring IV pain meds to control pain -Will need more IV pain meds for now (2) PAD (peripheral artery disease): Hx PAD L BKA secondary to ischemia Continue Pletal, aspirin, atorvastatin (3) Hypertension: Stable Continue lisinopril, metoprolol (4) Coronary artery disease: Denies angina symptoms Continue ASA, atorvastatin, metoprolol (5) History of prolonged Q-T interval on ECG: (6) Tobacco use: Patient not interested to quit smoking Counselled to quit smoking (7) Alcohol use: Previous ETOH use. 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 Had L BKA on 02/07/[address] Liu. He has had follows ups with vascular surgery since, and has home wound care coming to house twice weekly. Bactrim x 10 days by PCP on 03/29/18 without relief. Denies fever/chills, N/V In ER pt afebrile, vitals stable. No leukocytosis on admission 04/17 The patient was seen and examined the medical floor He has been complaining of a lot of pain at the surgical site Wound VAC has been taken off due to increasing pain and will be applied tomorrow without the suction Besides pain at the wound no other significant symptoms Physical Exam Vital Signs (Past 24 Hours): Last Vital Signs Temp 36.8 C 04/17/18 15:09 Pulse 70 04/17/18 15:09 Resp 20 04/17/18 15:09 BP 100/56 L 04/17/18 15:09 Pulse Ox 95 04/17/18 15:09 Physical Exam: Minimal distress at rest Constitutional: WD/WN, vitals as above Eyes: PERRL, conjunctivae normal, anicteric sclerae ENMT: external ear and nose normal, oropharynx normal Respiratory: normal respiratory effort, lungs clear to auscultation Cardiovascular: RRR, no murmur, no edema Gastrointestinal (Abdomen): normal bowel sounds, soft, nontender, no hepatosplenomegaly Musculoskeletal: Has left BKA Neurologic: awake; not confused Psychiatric: A+Ox3, euthymic affect Results & Data Laboratory Results Short CBC 04/17/18 Range/Units 06:16 Hgb 10.0 L (14.0-18.0) g/dL Hct 31.4 L (42-52) % BMP 04/17/18 06:16 Sodium 139 Potassium 3.8 Chloride 105 Carbon Dioxide 27 BUN 7 Creatinine 0.72 Glucose 89 Calcium 8.3 L Medications Administered Current Inpatient Medications Acetaminophen (Tylenol) 325 mg PO Q6H PRN PRN Reason: Fever Stop: 05/13/18 19:44 Acetaminophen (Tylenol) 650 mg PO Q4H PRN PRN Reason: pain/fever Stop: 05/13/18 23:45 Amoxicillin/Clavulanate Potassium (Augmentin 875mg) 1 tab PO BIDM [facility]; Protocol Stop: 04/21/18 23:59 Aspirin (Ecotrin Ectab) 81 mg PO QA[facility] [place] Stop: 05/14/18 08:59 Last Admin: 04/17/18 07:41 Dose: 81 mg Documented by: Atorvastatin Calcium (Lipitor) 40 mg PO PM [facility] Stop: 05/13/18 23:45 Last Admin: 04/16/18 20:01 Dose: 40 mg Documented by: Baclofen (Lioresal) 10 mg PO Q8H PRN PRN Reason: Muscle Spasm Stop: 05/16/18 04:29 Last Admin: 04/16/18 06:03 Dose: 10 mg Documented by: Cilostazol (Pletal) 50 mg PO BID [facility] Stop: 05/13/18 23:45 Last Admin: 04/17/18 07:39 Dose: 50 mg Documented by: Folic Acid (Folvite) 1 mg PO DAILY [facility] Stop: 05/14/18 08:59 Last Admin: 04/17/18 07:41 Dose: 1 mg Documented by: Gabapentin (Neurontin) 900 mg PO HS [facility] Stop: 05/13/18 23:45 Last Admin: 04/16/18 20:02 Dose: 900 mg Documented by: Lorazepam (Ativan) 0.5 mg in 1 mls @ 1 mls/min IV Q4H PRN PRN Reason: Anxiety/Agitation Stop: 05/13/18 23:45 Last Admin: 04/16/18 02:23 Dose: 1 mls/min Documented by: Prochlorperazine 5 mg/ Syringe 5 mls @ 5 mls/min IV Q6H PRN PRN Reason: Nausea And Vomiting Stop: 05/13/18 23:45 Heparin Sodium/Dextrose (Heparin Sodium/Dextrose) 25,000 units in 500 mls @ 25 mls/hr IV .Q20H [facility]; Protocol Stop: 05/14/18 00:44 Last Admin: 04/17/18 11:07 Dose: 1,250 units/hr, 25 mls/hr Documented by: Lisinopril (Zestril) 20 mg PO [facility] Stop: 05/14/18 08:59 Last Admin: 04/17/18 07:39 Dose: 20 mg Documented by: Metoprolol Succinate (Toprol Xl) 25 mg PO [facility] Stop: 05/14/18 08:59 Last Admin: 04/17/18 07:40 Dose: 25 mg Documented by: Morphine Sulfate (Morphine Sulfate) 4 mg IV Q4H PRN PRN Reason: Pain Stop: 04/27/18 19:43 Last Admin: 04/17/18 10:30 Dose: 4 mg Documented by: Oxycodone/Acetaminophen (Percocet 5mg/325mg) 1 tab PO Q4H PRN PRN Reason: Pain Stop: 04/27/18 23:45 Last Admin: 04/16/18 23:12 Dose: 1 tab Documented by: Psyllium Hydrophilic Mucilloid (Metamucil) 1 pkt PO QAM [facility] Stop: 05/17/18 11:29 Last Admin: 04/17/18 13:10 Dose: Not Given Documented by: Warfarin Sodium (Coumadin) 10 mg PO DAILY@1600 [facility] Stop: 05/17/18 15:59
[2018-04-17] MEDS ORDERED: OXYCODONE/ACETAMINOPHEN 5mg/325mg TAB PO PRN (15:27)
[2018-04-17] MEDS: AMOXICILLIN/CLAVULANATE 875 MG TAB PO SCH (15:29)
[2018-04-17] MEDS: WARFARIN SOD 10 MG TAB PO SCH (16:21)
[2018-04-17] MEDS: PROCHLORPERAZINE 5 MG in SYRINGE 4 ML IV PRN (16:57)
[2018-04-17] MEDS: GABAPENTIN 300 MG CAP PO SCH (20:28)
[2018-04-17] MEDS: ATORVASTATIN 40 MG TAB PO SCH (20:28)
[2018-04-18] MEDS: MoRPHine SULFATE 4 MG/ML 1 ML CARP\\VIAL IV PRN ×3 (04:05→20:41)
[2018-04-18] MEDS: HEPARIN STANDARD DEXTROSE 25,000 UNITS/500 ML IV SCH (07:02)
[2018-04-18 07:34] LABS: Basophils # (auto) 0.07 K/uL (0-0.2); Eosinophils # (auto) 0.41 K/uL (0-0.5); Eosinophils % (auto) 5.7 %; Hematocrit (blood only) 31.9 % (42-52); Hemoglobin 10.2 g/dL (14.0-18.0); Immature Granulocytes # (auto) 0.01 K/uL (0.00-0.02); Immature Granulocytes % (auto) 0.1 %; Lymphocytes # (auto) 2.54 K/uL (1.2-3.4); Lymphocytes % (auto) 35.3 %; Mean Corpuscular Volume 94.1 fL (80-100); Mean Platelet Volume 9.4 fL (7.4-10.4); Monocytes # (auto) 0.73 K/uL (0.11-0.59); Monocytes % (auto) 10.1 %; Neutrophils # (auto) 3.44 K/uL (1.4-6.5); Neutrophils % (auto) 47.8 %; Platelet Count 294 K/uL (130-400); RDW Coefficient of Variation 15.2 % (11.5-14.5); RDW Standard Deviation 52.2 fL (36.4-46.3); Red Blood Count 3.39 M/uL (4.7-6.1)
[2018-04-18 07:53] LABS: INR 1.3 (0.9-1.1); Partial Thromboplastin Ratio 2.2; Prothrombin Time 13.4 Seconds (9.0-12.0)
[2018-04-18 08:11] LABS: Partial Thromboplastin Time 59.1 Seconds (21.0-31.0)
[2018-04-18] MEDS: FOLIC ACID 1 MG TAB PO SCH (08:21)
[2018-04-18] MEDS: AMOXICILLIN/CLAVULANATE 875 MG TAB PO SCH ×2 (08:21→17:57)
[2018-04-18] MEDS: LISINOPRIL 20 MG TAB PO SCH (08:22)
[2018-04-18] MEDS: CILOSTAZOL 100 MG TAB PO SCH ×2 (08:22→21:11)
[2018-04-18] MEDS: ASPIRIN 81 MG ECTAB PO SCH (08:24)
[2018-04-18] MEDS: PSYLLIUM 58.6% POWDER PACKET PO SCH (08:24)
[2018-04-18] MEDS: METOPROLOL SUCC 25MG EXT REL TAB PO SCH (08:24)
--- NOTE | 2018-04-18 14:52 | Hospitalist Progress Note ---
Date of Service April 18, 2018 Assessment & Plan (1) Cellulitis of leg, left: Patient is a 73 yr male who presents with increased edema, erythema to left leg at prior incision site of L BKA. Left Leg Cellulitis: At the left BKA site Secondary to infected postoperative wound, a complication of care. No osteomyelitis -as below H/O left BKA on 02/07/[address] Liu. Failed outpatient Bactrim x 10 days by PCP --CT Knee:Operative changes consistent with a below-knee amputation. Generalized soft tissue edematous change adjacent to the operative site consistent with generalized cellulitis. No evidence for drainable abscess or collection. No evidence for osteomyelitis. Healing fracture of the inferior margin of the residual fibular fragment. --MRI:Postoperative changes compatible with prior below the knee amputation. Cutaneous defect along the anterior distal soft tissues is noted along with diffuse subcutaneous and deep tissue edema suggestive of cellulitis, venous stasis or lymphedema. No drainable fluid collection. No definite evidence of acute osteomyelitis. Consider repeat exam if of further clinical concern. S/P debridement on 04/15/18 --Received IV fluids --Continue IV Unasyn-changed to Augmentin as of 04/17 --Wound Culture:Corynebacterium --Blood Culture: No growth to date --Continue wound Vac & Care --Appreciate Wound Care physician input and recommendation --Needs FU with his Surgeon in [facility] upon discharge --Requiring IV pain meds to control pain -Percocet has not been working and requiring IV more --Morphine IR 15 mg daily 6 hourly as needed -Likely discharge in a day or (2) PAD (peripheral artery disease): Hx PAD L BKA secondary to ischemia Continue Pletal, aspirin, atorvastatin (3) Hypertension: Stable Continue lisinopril, metoprolol (4) Coronary artery disease: Denies angina symptoms Continue ASA, atorvastatin, metoprolol (5) History of prolonged Q-T interval on ECG: (6) Tobacco use: Patient not interested to quit smoking Counselled to quit smoking (7) Alcohol use: Previous ETOH use. 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 Had L BKA on 02/07/[address] Liu. He has had follows ups with vascular surgery since, and has home wound care coming to house twice weekly. Bactrim x 10 days by PCP on 03/29/18 without relief. Denies fever/chills, N/V In ER pt afebrile, vitals stable. No leukocytosis on admission 04/17 The patient was seen and examined the medical floor He has been complaining of a lot of pain at the surgical site Wound VAC has been taken off due to increasing pain and will be applied tomorrow without the suction Besides pain at the wound no other significant symptoms 04/18 Remains stable Still complains of pain in the left BKA stump Denies any fever and/or chills Denies any shortness of breath Physical Exam Vital Signs (Past 24 Hours): Last Vital Signs Temp 37.4 C 04/18/18 08:25 Pulse 90 04/18/18 08:25 Resp 18 04/18/18 08:25 BP 99/57 L 04/18/18 08:25 Pulse Ox 92 04/18/18 08:25 Physical Exam: No apparent distress at rest Constitutional: WD/WN, vitals as above Eyes: PERRL, conjunctivae normal, anicteric sclerae ENMT: external ear and nose normal, oropharynx normal Neck: trachea midline, no thyromegaly Respiratory: normal respiratory effort, lungs clear to auscultation Cardiovascular: RRR, no murmur, no edema Gastrointestinal (Abdomen): normal bowel sounds, soft, nontender, no hepatosplenomegaly Neurologic: awake; not confused Psychiatric: A+Ox3, euthymic affect Results & Data Laboratory Results Short CBC 04/18/18 Range/Units 07:13 WBC 7.20 (4.8-10.8) K/uL Hgb 10.2 L (14.0-18.0) g/dL Hct 31.9 L (42-52) % Plt Count 294 (130-400) K/uL Medications Administered Current Inpatient Medications Acetaminophen (Tylenol) 325 mg PO Q6H PRN PRN Reason: Fever Stop: 05/13/18 19:44 Acetaminophen (Tylenol) 650 mg PO Q4H PRN PRN Reason: pain/fever Stop: 05/13/18 23:45 Amoxicillin/Clavulanate Potassium (Augmentin 875mg) 1 tab PO BIDM [facility]; Protocol Stop: 04/21/18 23:59 Last Admin: 04/18/18 08:21 Dose: 1 tab Documented by: Aspirin (Ecotrin Ectab) 81 mg PO QAM [facility] Stop: 05/14/18 08:59 Last Admin: 04/18/18 08:24 Dose: 81 mg Documented by: Atorvastatin Calcium (Lipitor) 40 mg PO PM [facility] Stop: 05/13/18 23:45 Last Admin: 04/17/18 20:28 Dose: 40 mg Documented by: Baclofen (Lioresal) 10 mg PO Q8H PRN PRN Reason: Muscle Spasm Stop: 05/16/18 04:29 Last Admin: 04/16/18 06:03 Dose: 10 mg Documented by: Cilostazol (Pletal) 50 mg PO BID [facility] Stop: 05/13/18 23:45 Last Admin: 04/18/18 08:22 Dose: 50 mg Documented by: Folic Acid (Folvite) 1 mg PO DAILY [facility] Stop: 05/14/18 08:59 Last Admin: 04/18/18 08:21 Dose: 1 mg Documented by: Gabapentin (Neurontin) 900 mg PO HS [facility] Stop: 05/13/18 23:45 Last Admin: 04/17/18 20:28 Dose: 900 mg Documented by: Lorazepam (Ativan) 0.5 mg in 1 mls @ 1 mls/min IV Q4H PRN PRN Reason: Anxiety/Agitation Stop: 05/13/18 23:45 Last Admin: 04/16/18 02:23 Dose: 1 mls/min Documented by: Prochlorperazine 5 mg/ Syringe 5 mls @ 5 mls/min IV Q6H PRN PRN Reason: Nausea And Vomiting Stop: 05/13/18 23:45 Last Admin: 04/17/18 16:57 Dose: 5 mls/min Documented by: Heparin Sodium/Dextrose (Heparin Sodium/Dextrose) 25,000 units in 500 mls @ 25 mls/hr IV .Q20H [facility]; Protocol Stop: 05/14/18 00:44 Last Titration: 04/18/18 08:25 Dose: 1,250 units/hr, 25 mls/hr Documented by: Lisinopril (Zestril) 20 mg PO [facility] Stop: 05/14/18 08:59 Last Admin: 04/18/18 08:22 Dose: 20 mg Documented by: Metoprolol Succinate (Toprol Xl) 25 mg PO [facility] Stop: 05/14/18 08:59 Last Admin: 04/18/18 08:24 Dose: 25 mg Documented by: Morphine Sulfate (Morphine Sulfate) 4 mg IV Q4H PRN PRN Reason: Pain Stop: 04/27/18 19:43 Last Admin: 04/18/18 09:55 Dose: 4 mg Documented by: Morphine Sulfate (Morphine Sulfate Ir) 15 mg PO Q6H PRN PRN Reason: Pain Stop: 05/02/18 10:52 Psyllium Hydrophilic Mucilloid (Metamucil) 1 pkt PO [facility] Stop: 05/17/18 11:29 Last Admin: 04/18/18 08:24 Dose: Not Given Documented by: Warfarin Sodium (Coumadin) 10 mg PO DAILY@1600 [facility] Stop: 05/17/18 15:59 Last Admin: 04/17/18 16:21 Dose: 10 mg Documented by:
[2018-04-18] MEDS: WARFARIN SOD 10 MG TAB PO SCH (16:28)
[2018-04-18] MEDS: MoRPHine SULFATE IR 15 MG TAB (IMMEDIATE RELEASE) PO PRN (17:26)
[2018-04-18] MEDS: GABAPENTIN 300 MG CAP PO SCH (21:10)
[2018-04-18] MEDS: ATORVASTATIN 40 MG TAB PO SCH (21:11)
[2018-04-19] MEDS: MoRPHine SULFATE 4 MG/ML 1 ML CARP\\VIAL IV PRN ×4 (00:38→17:46)
[2018-04-19] MEDS: HEPARIN STANDARD DEXTROSE 25,000 UNITS/500 ML IV SCH ×2 (02:04→20:59)
[2018-04-19 07:07] LABS: INR 2.1 (0.9-1.1); Partial Thromboplastin Ratio 2.7; Prothrombin Time 20.7 Seconds (9.0-12.0)
[2018-04-19 07:12] LABS: Partial Thromboplastin Time 73.6 Seconds (21.0-31.0)
[2018-04-19] MEDS: CILOSTAZOL 100 MG TAB PO SCH ×2 (08:06→22:03)
[2018-04-19] MEDS: ASPIRIN 81 MG ECTAB PO SCH (08:07)
[2018-04-19] MEDS: AMOXICILLIN/CLAVULANATE 875 MG TAB PO SCH ×2 (08:07→16:21)
[2018-04-19] MEDS: METOPROLOL SUCC 25MG EXT REL TAB PO SCH (08:07)
[2018-04-19] MEDS: FOLIC ACID 1 MG TAB PO SCH (08:07)
[2018-04-19] MEDS: LISINOPRIL 20 MG TAB PO SCH (08:07)
[2018-04-19] MEDS: PSYLLIUM 58.6% POWDER PACKET PO SCH (08:08)
[2018-04-19] MEDS: MoRPHine SULFATE IR 15 MG TAB (IMMEDIATE RELEASE) PO PRN ×2 (09:25→22:02)
--- NOTE | 2018-04-19 12:15 | Hospitalist Progress Note ---
Date of Service April 19, 2018 Assessment & Plan (1) Cellulitis of leg, left: Patient is a 73 yr male who presents with increased edema, erythema to left leg at prior incision site of L BKA. Left Leg Cellulitis: At the left BKA site Secondary to infected postoperative wound, a complication of care. No osteomyelitis -as below H/O left BKA on 02/07/[address] Liu. Failed outpatient Bactrim x 10 days by PCP --CT Knee:Operative changes consistent with a below-knee amputation. Generalized soft tissue edematous change adjacent to the operative site consistent with generalized cellulitis. No evidence for drainable abscess or collection. No evidence for osteomyelitis. Healing fracture of the inferior margin of the residual fibular fragment. --MRI:Postoperative changes compatible with prior below the knee amputation. Cutaneous defect along the anterior distal soft tissues is noted along with diffuse subcutaneous and deep tissue edema suggestive of cellulitis, venous stasis or lymphedema. No drainable fluid collection. No definite evidence of acute osteomyelitis. Consider repeat exam if of further clinical concern. S/P debridement on 04/15/18 --Received IV fluids --Continue IV Unasyn-changed to Augmentin as of 04/17 --Wound Culture:Corynebacterium --Blood Culture: No growth to date --Continue wound Vac & Care --Appreciate Wound Care physician input and recommendation --Needs FU with his Surgeon in [facility] upon discharge --Requiring IV pain meds to control pain -Percocet has not been working and requiring IV more --Morphine IR 15 mg daily 6 hourly as needed --Pain is controlled -New wound VAC is placed -Likely discharge today (2) PAD (peripheral artery disease): Hx PAD L BKA secondary to ischemia Continue Pletal, aspirin, atorvastatin (3) Hypertension: Stable Continue lisinopril, metoprolol (4) Coronary artery disease: Denies angina symptoms Continue ASA, atorvastatin, metoprolol (5) History of prolonged Q-T interval on ECG: (6) Tobacco use: Patient not interested to quit smoking Counselled to quit smoking (7) Alcohol use: Previous ETOH use. 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 Had L BKA on 02/07/[address] Liu. He has had follows ups with vascular surgery since, and has home wound care coming to house twice weekly. Bactrim x 10 days by PCP on 03/29/18 without relief. Denies fever/chills, N/V In ER pt afebrile, vitals stable. No leukocytosis on admission 04/17 The patient was seen and examined the medical floor He has been complaining of a lot of pain at the surgical site Wound VAC has been taken off due to increasing pain and will be applied tomorrow without the suction Besides pain at the wound no other significant symptoms 04/18 Remains stable Still complains of pain in the left BKA stump Denies any fever and/or chills Denies any shortness of breath 04/19 The patient was seen and examined the medical floor He complains of some pain in the left BKA stump The wound VAC will be placed and most likely will be going home this afternoon Physical Exam Vital Signs (Past 24 Hours): Last Vital Signs Temp 37 C 04/19/18 07:37 Pulse 56 L 04/19/18 07:37 Resp 18 04/19/18 07:37 BP 106/60 04/19/18 07:37 Pulse Ox 95 04/19/18 07:37 Physical Exam: No apparent distress at rest Constitutional: WD/WN, vitals as above Eyes: PERRL, conjunctivae normal, anicteric sclerae ENMT: external ear and nose normal, oropharynx normal Neck: trachea midline, no thyromegaly Respiratory: normal respiratory effort, lungs clear to auscultation Cardiovascular: RRR, no murmur, no edema Gastrointestinal (Abdomen): normal bowel sounds, soft, nontender, no hepatosplenomegaly Neurologic: awake; not confused Psychiatric: A+Ox3, euthymic affect Results & Data Medications Administered Current Inpatient Medications Acetaminophen (Tylenol) 325 mg PO Q6H PRN PRN Reason: Fever Stop: 05/13/18 19:44 Acetaminophen (Tylenol) 650 mg PO Q4H PRN PRN Reason: pain/fever Stop: 05/13/18 23:45 Amoxicillin/Clavulanate Potassium (Augmentin 875mg) 1 tab PO BIDM [facility]; Protocol Stop: 04/21/18 23:59 Last Admin: 04/19/18 08:07 Dose: 1 tab Documented by: Aspirin (Ecotrin Ectab) 81 mg PO QAM [facility] Stop: 05/14/18 08:59 Last Admin: 04/19/18 08:07 Dose: 81 mg Documented by: Atorvastatin Calcium (Lipitor) 40 mg PO PM [facility] Stop: 05/13/18 23:45 Last Admin: 04/18/18 21:11 Dose: 40 mg Documented by: Baclofen (Lioresal) 10 mg PO Q8H PRN PRN Reason: Muscle Spasm Stop: 05/16/18 04:29 Last Admin: 04/16/18 06:03 Dose: 10 mg Documented by: Cilostazol (Pletal) 50 mg PO BID [facility] Stop: 05/13/18 23:45 Last Admin: 04/19/18 08:06 Dose: 50 mg Documented by: Folic Acid (Folvite) 1 mg PO DAILY [facility] Stop: 05/14/18 08:59 Last Admin: 04/19/18 08:07 Dose: 1 mg Documented by: Gabapentin (Neurontin) 900 mg PO HS [facility] Stop: 05/13/18 23:45 Last Admin: 04/18/18 21:10 Dose: 900 mg Documented by: Lorazepam (Ativan) 0.5 mg in 1 mls @ 1 mls/min IV Q4H PRN PRN Reason: Anxiety/Agitation Stop: 05/13/18 23:45 Last Admin: 04/16/18 02:23 Dose: 1 mls/min Documented by: Prochlorperazine 5 mg/ Syringe 5 mls @ 5 mls/min IV Q6H PRN PRN Reason: Nausea And Vomiting Stop: 05/13/18 23:45 Last Admin: 04/17/18 16:57 Dose: 5 mls/min Documented by: Heparin Sodium/Dextrose (Heparin Sodium/Dextrose) 25,000 units in 500 mls @ 24 mls/hr IV .[id number] [facility]; Protocol Stop: 05/14/18 00:44 Last Titration: 04/19/18 07:47 Dose: 1,200 units/hr, 24 mls/hr Documented by: Lisinopril (Zestril) [address] [facility] Stop: 05/14/18 08:59 Last Admin: 04/19/18 08:07 Dose: 20 mg Documented by: Metoprolol [facility]inate ([facility]l) [facility] Stop: 05/14/18 08:59 Last Admin: 04/19/18 08:07 Dose: 25 mg Documented by: Morphine Sulfate (Morphine Sulfate) 4 mg IV Q4H PRN PRN Reason: Pain Stop: 04/27/18 19:43 Last Admin: 04/19/18 08:11 Dose: 4 mg Documented by: Morphine Sulfate (Morphine Sulfate Ir) 15 mg PO Q6H PRN PRN Reason: Pain Stop: 05/02/18 10:52 Last Admin: 04/19/18 09:25 Dose: 15 mg Documented by: Psyllium Hydrophilic Mucilloid (Metamucil) [address] [facility] Stop: 05/17/18 11:29 Last Admin: 04/19/18 08:08 Dose: Not Given Documented by: Warfarin Sodium (Coumadin) 10 mg PO DAILY@1600 [facility] Stop: 05/17/18 15:59 Last Admin: 04/18/18 16:28 Dose: 10 mg Documented by:
[2018-04-19 14:26] LABS: Partial Thromboplastin Ratio 2.5
[2018-04-19 14:33] LABS: Partial Thromboplastin Time 66.6 Seconds (21.0-31.0)
[2018-04-19] MEDS ORDERED: WARFARIN SOD 5 MG TAB PO SCH (16:00)
[2018-04-19] MEDS: PROCHLORPERAZINE 5 MG in SYRINGE 4 ML IV PRN (21:37)
[2018-04-19] MEDS: GABAPENTIN 300 MG CAP PO SCH (22:03)
[2018-04-19] MEDS: ATORVASTATIN 40 MG TAB PO SCH (22:03)
[2018-04-19 23:05] LABS: Partial Thromboplastin Ratio 2.4
[2018-04-19 23:29] LABS: Partial Thromboplastin Time 64.6 Seconds (21.0-31.0)
[2018-04-20] MEDS ORDERED: MoRPHine SULFATE 2 MG/ML CARP ONE (05:00)
[2018-04-20] MEDS: MoRPHine SULFATE 4 MG/ML 1 ML CARP\\VIAL IV PRN ×2 (05:01→10:13)
[2018-04-20 07:54] LABS: Basophils # (auto) 0.08 K/uL (0-0.2); Basophils % (auto) 1.1 %; Eosinophils # (auto) 0.35 K/uL (0-0.5); Eosinophils % (auto) 4.9 %; Hematocrit (blood only) 31.6 % (42-52); Hemoglobin 10.1 g/dL (14.0-18.0); Immature Granulocytes # (auto) 0.01 K/uL (0.00-0.02); Immature Granulocytes % (auto) 0.1 %; Lymphocytes # (auto) 2.32 K/uL (1.2-3.4); Lymphocytes % (auto) 32.5 %; Mean Platelet Volume 9.4 fL (7.4-10.4); Monocytes # (auto) 0.63 K/uL (0.11-0.59); Monocytes % (auto) 8.8 %; Neutrophils # (auto) 3.75 K/uL (1.4-6.5); Neutrophils % (auto) 52.6 %; Platelet Count 283 K/uL (130-400); RDW Coefficient of Variation 15.2 % (11.5-14.5); RDW Standard Deviation 52.5 fL (36.4-46.3); Red Blood Count 3.36 M/uL (4.7-6.1); White Blood Count 7.14 K/uL (4.8-10.8)
[2018-04-20 08:20] LABS: INR 2.6 (0.9-1.1); Partial Thromboplastin Ratio 2.5; Prothrombin Time 24.6 Seconds (9.0-12.0)
[2018-04-20 08:38] LABS: Partial Thromboplastin Time 68.2 Seconds (21.0-31.0)
[2018-04-20] MEDS: AMOXICILLIN/CLAVULANATE 875 MG TAB PO SCH (09:04)
[2018-04-20] MEDS: FOLIC ACID 1 MG TAB PO SCH (09:04)
[2018-04-20] MEDS: CILOSTAZOL 100 MG TAB PO SCH (09:04)
[2018-04-20] MEDS: LISINOPRIL 20 MG TAB PO SCH (09:05)
[2018-04-20] MEDS: ASPIRIN 81 MG ECTAB PO SCH (09:05)
[2018-04-20] MEDS: PSYLLIUM 58.6% POWDER PACKET PO SCH (09:05)
[2018-04-20] MEDS: METOPROLOL SUCC 25MG EXT REL TAB PO SCH (09:05)
--- NOTE | 2018-04-20 10:08 | Hospitalist Progress Note ---
Date of Service April 20, 2018 Assessment & Plan (1) Cellulitis of leg, left: Patient is a 73 yr male who presents with increased edema, erythema to left leg at prior incision site of L BKA. Left Leg Cellulitis: At the left BKA site Secondary to infected postoperative wound, a complication of care. No osteomyelitis -as below H/O left BKA on 02/07/[address] Liu. Failed outpatient Bactrim x 10 days by PCP --CT Knee:Operative changes consistent with a below-knee amputation. Generalized soft tissue edematous change adjacent to the operative site consistent with generalized cellulitis. No evidence for drainable abscess or collection. No evidence for osteomyelitis. Healing fracture of the inferior margin of the residual fibular fragment. --MRI:Postoperative changes compatible with prior below the knee amputation. Cutaneous defect along the anterior distal soft tissues is noted along with diffuse subcutaneous and deep tissue edema suggestive of cellulitis, venous stasis or lymphedema. No drainable fluid collection. No definite evidence of acute osteomyelitis. Consider repeat exam if of further clinical concern. S/P debridement on 04/15/18 --Received IV fluids --Continue IV Unasyn-changed to Augmentin as of 04/17 --Wound Culture:Corynebacterium --Blood Culture: No growth to date --Continue wound Vac & Care --Appreciate Wound Care physician input and recommendation --Needs FU with his Surgeon in [facility] upon discharge --Requiring IV pain meds to control pain -Percocet has not been working and requiring IV more --Morphine IR 15 mg daily 6 hourly as needed --Pain is controlled -New wound VAC is placed -Complains to have some pain at this time site occasionally -Continue wound VAC placement and wound care as per instruction from the wound clinic (2) PAD (peripheral artery disease): Hx PAD L BKA secondary to ischemia Continue Pletal, aspirin, atorvastatin (3) Hypertension: Stable Continue lisinopril, metoprolol (4) Coronary artery disease: Denies angina symptoms Continue ASA, atorvastatin, metoprolol (5) History of prolonged Q-T interval on ECG: (6) Tobacco use: Patient not interested to quit smoking Counselled to quit smoking (7) Alcohol use: Previous ETOH use. Last drink 02/04/18 [employer] to quit Acute DVT: Continue IV heparin Continue coumadin INR is 1.3 Continue current dose of Coumadin Likely be discharged tomorrow on Lovenox and Coumadin INR is 2.6 today Discontinue heparin and continue Coumadin 5 mg daily as an outpatient Monitor INR to keep it between 2-3 He will be discharged today DVT Px: on IV Heparin and coumadin INR is not therapeutic Disposition: Case management for discharge planning Wound VAC has to be accepted by the insurance before he can be discharged Subjective Pt presented with c/o increased edema, erythema to left leg at prior incision site of L BKA. Had L BKA on 02/07/[address] Liu. He has had follows ups with vascular surgery since, and has home wound care coming to house twice weekly. Bactrim x 10 days by PCP on 03/29/18 without relief. Denies fever/chills, N/V In ER pt afebrile, vitals stable. No leukocytosis on admission 04/17 The patient was seen and examined the medical floor He has been complaining of a lot of pain at the surgical site Wound VAC has been taken off due to increasing pain and will be applied tomorrow without the suction Besides pain at the wound no other significant symptoms 04/18 Remains stable Still complains of pain in the left BKA stump Denies any fever and/or chills Denies any shortness of breath 04/19 The patient was seen and examined the medical floor He complains of some pain in the left BKA stump The wound VAC will be placed and most likely will be going home this afternoon 04/20 Complains to have some pain at the left BKA stump site Denies any other symptoms Does not have any fever and/or chills, white count is normal and INR is therapeutic today Physical Exam Vital Signs (Past 24 Hours): Last Vital Signs Temp 36.9 C 04/20/18 08:25 Pulse 62 04/20/18 08:25 Resp 14 04/20/18 08:25 BP 122/64 04/20/18 08:25 Pulse Ox 94 04/20/18 08:25 Physical Exam: No apparent distress at rest Constitutional: WD/WN, vitals as above Eyes: PERRL, conjunctivae normal, anicteric sclerae ENMT: external ear and nose normal, oropharynx normal Neck: trachea midline, no thyromegaly Respiratory: normal respiratory effort, lungs clear to auscultation Cardiovascular: RRR, no murmur, no edema Gastrointestinal (Abdomen): normal bowel sounds, soft, nontender, no hepatosplenomegaly Skin: + erythema (Involving the left BKA stump wound) Neurologic: awake; not confused Psychiatric: A+Ox3, euthymic affect Results & Data Laboratory Results Short CBC 04/20/18 Range/Units 07:39 WBC 7.14 (4.8-10.8) K/uL Hgb 10.1 L (14.0-18.0) g/dL Hct 31.6 L (42-52) % Plt Count 283 (130-400) K/uL Medications Administered Current Inpatient Medications Acetaminophen (Tylenol) 325 mg PO Q6H PRN PRN Reason: Fever Stop: 05/13/18 19:44 Acetaminophen (Tylenol) 650 mg PO Q4H PRN PRN Reason: pain/fever Stop: 05/13/18 23:45 Amoxicillin/Clavulanate Potassium (Augmentin 875mg) 1 tab PO BIDM [facility]; Protocol Stop: 04/21/18 23:59 Last Admin: 04/20/18 09:04 Dose: 1 tab Documented by: Aspirin (Ecotrin Ectab) 81 mg PO QAM [facility] Stop: 05/14/18 08:59 Last Admin: 04/20/18 09:05 Dose: 81 mg Documented by: Atorvastatin Calcium (Lipitor) 40 mg PO PM [facility] Stop: 05/13/18 23:45 Last Admin: 04/19/18 22:03 Dose: 40 mg Documented by: Baclofen (Lioresal) 10 mg PO Q8H PRN PRN Reason: Muscle Spasm Stop: 05/16/18 04:29 Last Admin: 04/16/18 06:03 Dose: 10 mg Documented by: Cilostazol (Pletal) 50 mg PO BID [facility] Stop: 05/13/18 23:45 Last Admin: 04/20/18 09:04 Dose: 50 mg Documented by: Folic Acid (Folvite) 1 mg PO DAILY [facility] Stop: 05/14/18 08:59 Last Admin: 04/20/18 09:04 Dose: 1 mg Documented by: Gabapentin (Neurontin) 900 mg PO HS [facility] Stop: 05/13/18 23:45 Last Admin: 04/19/18 22:03 Dose: 900 mg Documented by: Lorazepam (Ativan) 0.5 mg in 1 mls @ 1 mls/min IV Q4H PRN PRN Reason: Anxiety/Agitation Stop: 05/13/18 23:45 Last Admin: 04/16/18 02:23 Dose: 1 mls/min Documented by: Prochlorperazine 5 mg/ Syringe 5 mls @ 5 mls/min IV Q6H PRN PRN Reason: Nausea And Vomiting Stop: 05/13/18 23:45 Last Admin: 04/19/18 21:37 Dose: 5 mls/min Documented by: Lisinopril (Zestril) 20 mg PO [facility] Stop: 05/14/18 08:59 Last Admin: 04/20/18 09:05 Dose: 20 mg Documented by: Metoprolol Succinate (Toprol Xl) 25 mg PO [facility] Stop: 05/14/18 08:59 Last Admin: 04/20/18 09:05 Dose: 25 mg Documented by: Morphine Sulfate (Morphine Sulfate) 4 mg IV Q4H PRN PRN Reason: Pain Stop: 04/27/18 19:43 Last Admin: 04/19/18 17:46 Dose: 4 mg Documented by: Morphine Sulfate (Morphine Sulfate Ir) 15 mg PO Q6H PRN PRN Reason: Pain Stop: 05/02/18 10:52 Last Admin: 04/19/18 22:02 Dose: 15 mg Documented by: Psyllium Hydrophilic Mucilloid (Metamucil) 1 pkt PO [facility] Stop: 05/17/18 11:29 Last Admin: 04/20/18 09:05 Dose: Not Given Documented by: Warfarin Sodium (Coumadin) 5 mg PO DAILY@1600 [facility] Stop: 05/19/18 15:59 Last Admin: 04/19/18 16:26 Dose: 5 mg Documented by:
[2018-04-20] MEDS: MoRPHine SULFATE IR 15 MG TAB (IMMEDIATE RELEASE) PO PRN (11:27)
--- NOTE | 2018-04-21 08:18 | Discharge Summary ---
Date of Service April 21, 2018 Admission HPI Per Admitting Provider Pt is 73 y/o M with PMH HTN, GERD, CAD, PAD s/p L BKA in 01/2018, tobacco use, prior alcohol use, h/o prolonged QTc presented to ER with c/o increased edema, erythema to left leg at prior incision site of L BKA. Pt with hx ER visit at [facility] on 02/05/18 for L foot infection and found to have occluded L distal superficial femoral artery, L popliteal artery, L proximal posterior artery, L peroneal arther and L anterior tibial artery and was transferred to [facility]. Pt had L BKA on 02/07/[address] Liu. He has had follows ups with vascular surgery since, was to have follow up today, however pt rescheduled. Pt states has been having issues with wound healing since surgery and has wound care coming to house twice weekly. Pt reports noticed increased edema and erythema over the past month. Pt was started on Bactrim x 10 days by PCP on 03/29/18 and states finished course without any improvement and feels symptoms are worse with increased edema, erythema. Pt states has noticed some pus like drainage from area. He denies any red streaking. Reports initially after surgery had fantom pain, however that has resolved. He reports still feels like foot is present and has fallen a couple times at night getting out of bed as he forgot his foot was gone. Denies fever/chills, diaphoresis, N/V/D/C, VEGA, dizziness, syncope, vision changes, neck pain, CP, SOB, orthopnea, palpitations, cough, sore throat, choking, otalgia, rhinorrhea, abdominal pain, other rashes, urinary symptoms. Admission Exam Per Admitting Provider Vital Signs (Past 24 Hours): Last Vital Signs Temp 36.5 C 04/13/18 17:10 Pulse 85 04/13/18 19:14 Resp 18 04/13/18 19:14 BP 132/65 04/13/18 19:14 Pulse Ox 95 04/13/18 19:14 Physical Exam: General: no distress, WDWN Head: normocephalic, atraumatic Eyes:conjunctiva non-injected, anicteric ENT: normal inspection external ears, nose, mucous membranes moist Neck: supple, trachea midline Lungs: clear, no respiratory distress CV: RRR, no murmur Abd: normal BS, soft, non-tender Ext:LLE: +BKA with prior incision with scabbing, lateral aspect with gaping, incision site with some surrounding erythema and tenderness to palpation. No discharge from wound noted at this time. Diffuse L knee edema, upper leg non- tender to palpation. RLE: no cyanosis/erythema, no calf tenderness Neuro: A&O x 3, no focal deficits noted, normal affect Skin: warm, dry Principal Diagnosis Infected left BKA stump, left leg DVT Discharge Exam Constitutional WD/WN, vitals as above Eyes PERRL, conjunctivae normal, anicteric sclerae ENMT external ear and nose normal, oropharynx normal Neck trachea midline, no thyromegaly Respiratory normal respiratory effort, lungs clear to auscultation Cardiovascular RRR, no murmur, no edema Gastrointestinal (Abdomen) normal bowel sounds, soft, nontender, no hepatosplenomegaly Skin + erythema (Involving the left BKA stump wound) Neurologic awake; not confused Psychiatric A+Ox3, euthymic affect Discharge Data Allergies Allergy/AdvReac Type Severity Reaction Status Date / Time sotalol AdvReac Severe v-fib Unverified 04/13/18 17:42 Consultations 04/13/18 18:57 ED Decision to Admit Stat 04/13/18 23:46 Consult Wound Care Provider Routine 04/14/18 16:06 Consult Case Management - Discharge Planning Routine Ordered Studies 04/13/18 17:26 CT knee LT wo con Stat 04/13/18 20:25 US venous doppler LE BI Urgent 04/14/18 23:46 MR lower leg LT wo con Routine Hospital Course (1) Cellulitis of leg, left: Patient is a 73 yr male who presents with increased edema, erythema to left leg at prior incision site of L BKA. Left Leg Cellulitis: At the left BKA site Secondary to infected postoperative wound, a complication of care. No osteomyelitis -as below H/O left BKA on 02/07/[address] Liu. Failed outpatient Bactrim x 10 days by PCP --CT Knee:Operative changes consistent with a below-knee amputation. Generalized soft tissue edematous change adjacent to the operative site consistent with generalized cellulitis. No evidence for drainable abscess or collection. No evidence for osteomyelitis. Healing fracture of the inferior margin of the residual fibular fragment. --MRI:Postoperative changes compatible with prior below the knee amputation. Cutaneous defect along the anterior distal soft tissues is noted along with diffuse subcutaneous and deep tissue edema suggestive of cellulitis, venous stasis or lymphedema. No drainable fluid collection. No definite evidence of acute osteomyelitis. Consider repeat exam if of further clinical concern. S/P debridement on 04/15/18 --Received IV fluids --Continue IV Unasyn-changed to Augmentin as of 04/17 --Wound Culture:Corynebacterium --Blood Culture: No growth to date --Continue wound Vac & Care --Appreciate Wound Care physician input and recommendation --Needs FU with his Surgeon in [facility] upon discharge --Requiring IV pain meds to control pain -Percocet has not been working and requiring IV more --Morphine IR 15 mg daily 6 hourly as needed --Pain is controlled -New wound VAC is placed -Complains to have some pain at this time site occasionally -Continue wound VAC placement and wound care as per instruction from the wound clinic (2) PAD (peripheral artery disease): Hx PAD L BKA secondary to ischemia Continue Pletal, aspirin, atorvastatin (3) Hypertension: Stable Continue lisinopril, metoprolol (4) Coronary artery disease: Denies angina symptoms Continue ASA, atorvastatin, metoprolol (5) History of prolonged Q-T interval on ECG: (6) Tobacco use: Patient not interested to quit smoking Counselled to quit smoking (7) Alcohol use: Previous ETOH use. Last drink 02/04/18 [employer] to quit Acute DVT: Continue IV heparin Continue coumadin INR is 1.3 Continue current dose of Coumadin Likely be discharged tomorrow on Lovenox and Coumadin INR is 2.6 today Discontinue heparin and continue Coumadin 5 mg daily as an outpatient Monitor INR to keep it between 2-3 He will be discharged today DVT Px: on IV Heparin and coumadin INR is not therapeutic Disposition: Case management for discharge planning Wound VAC has to be accepted by the insurance before he can be discharged Total Time Total Time Spent Total Time Spent (In Minutes): 35 minutes Total Time Includes: Examination of the Patient, Discharge Planning and Medication Reconciliation Discharge Plan Discharge Items Patient Disposition: Home - Home Health Services Reason For Visit: INFECTED LLE WOUND Discharge Diagnosis: Infected left BKA stump, left leg DVT Condition: Good Discharge Goals: Decrease discomfort, Improve function and Increase independence Activity: Resume your previous activity Non-emergency contact: Primary Care Provider Call non-emergency contact if: you have any medication questions and your symptoms worsen Follow-up/Referrals: Tio Holcomb M.D. [Primary Care Provider] - 04/25/18 10:45 am (Coagulation clinic will call with appointment) Addtl Provider Instructions: Continue wound VAC and wound management as per instruction. please take precaution to avoid fall Prescriptions: New warfarin [Coumadin] 5 mg Tablet 5 mg PO DAILY@1600 30 Days Qty: 30 RF: 0 morphine 15 mg Tablet 15 mg PO Q6H PRN (Reason: pain) 5 Days Qty: 20 RF: 0 amoxicillin-pot clavulanate 875-125 mg Tablet 1 tab PO BIDM 3 Days Qty: 6 RF: 0 Continued lisinopril 20 mg Tablet 20 mg PO QAM RF: 0 aspirin [Aspirin Low Dose] 81 mg Tablet,Delayed Release (Dr/Ec) 81 mg PO QAM RF: 0 atorvastatin 40 mg Tablet 40 mg PO PM RF: 0 cilostazol 50 mg Tablet 50 mg PO BID RF: 0 gabapentin 300 mg Capsule 600 mg PO UD RF: 0 gabapentin 300 mg Capsule 900 mg PO HS RF: 0 metoprolol succinate [Toprol XL] 25 mg Tablet Extended Release 24 Hr 25 mg PO QAM RF: 0 oxycodone [OxyContin] 10 mg Tablet,Oral Only,Ext.Rel.12 Hr 10 mg PO Q12H PRN (Reason: Pain) RF: 0 folic acid 1 mg Tablet 1 mg PO DAILY RF: 0 Stand-Alone Forms: [facility]/Other Patient Handouts: Closure Wound Vacuum Assisted Discharge Orders: Discharge Order (Routine); Ordered 04/20/18 Ordered By: Kelly Betancourt Admission Data Admit Date/Time: 04/13/18 20:29 Attending Provider: Kelly Betancourt Admit Provider: Chapin Erickson Primary Care Provider: Tio Holcomb Other Providers: Chapin Erickson ; Julius Chan ; Fatmata Mccoy ; Olya Nesbitt ; Rodrigo Argueta ; Renea Fernández ; Rick Alexander ; Ross Chong Service: Medical Other Interventions: Discharge Summary Assessment (RN) Last Done: 04/20/18 13:06 DC Date/Time DO NOT enter until pt leaves facility: 04/20/18 15:00
== END 2018-04-20 15:00 | disposition home health service (06) | DRG 857 ==
LOC: ED 17:07 → 4E 20:29 → SUATTDRO 20:29 → 4E 21:44